=== PATIENT | female | born 1970 | race Caucasian/White ===

== ENCOUNTER 2023-11-02 13:56 | Outpatient (REF) | payer OTHER, SELFPAY | END 2023-11-02 13:57 | disposition home or self-care (01) | LOC: HO.HOSX 13:56 | PROVIDERS: Visit Provider Orthopaedic Surgery | DX: Z13.89 Encounter for screening for other disorder (principal) ==

== ENCOUNTER → 2024-01-11 13:07 | Outpatient (BNVA) | payer OTHER, SELFPAY | PROVIDERS: PCP Internal Medicine; Visit Provider Surgery ==

== ENCOUNTER → 2024-03-23 08:07 | Outpatient (BNVA) | payer OTHER, SELFPAY | PROVIDERS: PCP Internal Medicine; Visit Provider Surgery ==

== ENCOUNTER → 2024-04-20 08:05 | Outpatient (BNVA) | payer OTHER, SELFPAY | PROVIDERS: PCP Internal Medicine; Visit Provider Surgery ==

== ENCOUNTER 2024-11-27 07:31 | Inpatient (IN) | payer OTHER, SELFPAY ==
--- NOTE | ~2024-11-27 | CT_ITS ---
EXAMINATION: CT ABDOMEN AND PELVIS WITH CONTRAST CLINICAL INFORMATION: Epigastric and left-sided abdominal pain. COMPARISON: None available. TECHNIQUE: Multidetector volumetric images were obtained from the superior aspect of the liver through the pubic symphysis following administration 85 mL of Omnipaque 350 intravenous contrast. Sagittal and coronal reformatted images were obtained on the technologist's workstation. Oral contrast: No This CT examination was performed using dose optimization techniques as appropriate, variously including the following: *Automated exposure control *Adjustment of mA and/or kV according to patient size (this includes techniques or standardized protocols for targeted exams where dose is matched to indication/reason for exam; i.e. extremities or head) *Use of iterative reconstruction technique FINDINGS: LUNG BASES: Lung bases are clear. Top normal cardiac size. Small type I hiatus hernia. No effusions. LIVER, GALLBLADDER, AND BILIARY TREE: The liver is normal in size and shape with mild diffuse fatty infiltration. No focal hepatic lesion or biliary ductal dilatation is present. The gallbladder is unremarkable with no evidence of radiopaque gallstones, gallbladder wall thickening, or obvious pericholecystic inflammatory changes. PANCREAS: There is diffuse mild swelling of the entire pancreas, most notable involving the body and tail, with peripancreatic stranding and inflammation. There is a small amount of fluid abutting the tail and extending into the left anterior pararenal space. There is no discrete pancreatic lesion or evidence of necrosis. SPLEEN: Unremarkable. ADRENAL GLANDS: Unremarkable. KIDNEYS AND URETERS: The kidneys are normal in size, shape, and attenuation. No hydronephrosis, hydroureter, or calculi seen. No perinephric stranding. 11 mm left interpolar cyst. BLADDER: Unremarkable. GASTROINTESTINAL TRACT: The small bowel is normal in caliber and course. The stomach is decompressed. Small type I hiatus hernia. The duodenal sweep is normal. Colon is unremarkable. Redundant sigmoid. Mobile cecum. Normal appendix. ABDOMINAL WALL: There is a tiny periumbilical hernia. LYMPH NODES: Normal. VASCULAR: Normal. Circumaortic left renal vein. PELVIC VISCERA: No adnexal abnormalities. The uterus demonstrates a 4.2 cm peripherally calcified fibroid in the left fundus. OSSEOUS STRUCTURES: No suspicious lytic or blastic bone lesions. Mild to moderate degenerative spondylosis of the spine. There is a bone island in the left acetabulum. CT/CT abdomen pelvis w IV con IMPRESSION: 1. Moderate acute edematous pancreatitis without evidence of pancreatic necrosis. There is a small volume of fluid abutting the pancreatic tail and extending into the left anterior pararenal space. 2. Mild diffuse fatty infiltration of the liver. No focal lesion. 3. 4.6 mm left fundal calcified fibroid. 4. Suspect small type I hiatus hernia. Electronically signed by: Jonh Krueger MD 11/27/2024 01:12 PM [facility]
--- NOTE | ~2024-11-27 | MR_ITS ---
CLINICAL HISTORY: pancreatitis MRCP without gadolinium Comparison: None Findings: Sludge and/or tiny gallstones within the gallbladder. Borderline caliber common bile duct. No evidence of ductal stone. Evaluation limited by motion artifact. There is severe pancreatic and peripancreatic edema. There is moderate free fluid within the lesser sac. There is no walled-off pseudocyst. No pancreatic mass or ductal dilatation. 9 mm cyst within the right kidney. 13 mm cyst within the left kidney. No hydronephrosis. Unremarkable pancreas and adrenal glands. Mild fatty infiltration of the liver. No liver nodule or intrahepatic ductal dilatation. IMPRESSION: 1. Severe acute pancreatitis. Moderate fluid within the lesser sac. No pseudocyst. 2. Cholelithiasis. 3. No choledocholithiasis. Borderline caliber common bile duct. 4. Mild fatty infiltration of the liver. 5. Evaluation limited by motion artifact. This document has been electronically signed by: Linda Donald MD on 11/27/2024 18:42:12
[2024-11-27 07:37] VITALS: BP 150/62; PULSE 69; RESP 20; TEMP 36.6; O2SAT 99; BMI 54.9
[2024-11-27 08:01] LABS: MANUAL DIFF FLAG NO
[2024-11-27 08:02] LABS: Appearance Urine Cloudy; Basophils Absolute Auto 0.1 X10*3/uL (0.0-0.2); Basophils Percent Auto 0.4 % (0-2); Color Urine Yellow; Eosinophils Absolute Auto 0.1 X10*3/uL (0.0-0.4); Eosinophils Percent Auto 0.5 % (0-4); Glucose Urine UA Negative (Negative); Hematocrit 43.7 % (37.0-47.0); Hemoglobin 14.5 g/dl (12.0-16.0); Imm Gran Abs Auto 0.03 X10*3/uL (0.00-0.03); Imm Gran Pct Auto 0.2 % (0.0-0.4); Leukocyte Esterase Urine Negative (Negative); Lymphocytes Absolute Auto 2.5 X10*3/uL (1.2-4.9); Lymphocytes Percent Auto 20.1 % (20-40); Mean Corpuscular HGB Conc 33.2 g/dl (31.0-35.0); Mean Corpuscular Hemoglobin 30.1 pg (27.0-33.0); Mean Corpuscular Volume 90.9 fL (80.0-98.0); Mean Platelet Volume 10.6 fL (9.4-12.3); Monocytes Absolute Auto 0.9 X10*3/uL (0.1-1.2); Neutrophils Absolute Auto 8.8 x10*3/uL (2.0-8.3); Neutrophils Percent Auto 71.8 % (45-73); Nitrite Urine Negative (Negative); PH 5.5 (5.0-9.0); Platelet Count 264 X10*3/uL (160-400); Red Blood Count 4.81 X10*6/uL (4.20-5.50); Red Cell Distribution Width 13.5 % (11.0-16.0); Specific Gravity - Urine >= 1.030 (1.005-1.025); UMIC TRIGGER UACC YES; Urine Blood Large (3+) (Negative); Urine Ketones Negative (Negative); Urine Protein 30 (1+) mg/dL (Neg-Trace); White Blood Count 12.3 X10*3/uL (4.8-10.8)
[2024-11-27 08:08] LABS: Bacteria Urine Trace (None Seen); RBC Urine >20 /HPF (0-2); UACC Culture Trigger YES
[2024-11-27 08:30] LABS: Alanine Aminotransferase 199 U/L (0-31); Albumin Level 3.9 g/dL (3.5-5.0); Anion Gap 13 (12-20); Aspartate Amino Transferase 368 U/L (5-31); Bilirubin Direct 0.5 mg/dL (0.0-0.5); Bilirubin Total 1.3 mg/dL (0.0-1.0); Blood Urea Nitrogen 22 mg/dL (9-16); Calcium 9.1 mg/dL (8.4-10.2); Carbon Dioxide 25 mmol/L (22-29); Chloride 106 mmol/L (96-108); Estimated Glomerular Filt Rate > 60; Glucose Random 194 mg/dL (60-115); Potassium 3.9 mmol/L (3.3-5.1); Sodium 140 mmol/L (135-145); Total Protein 7.6 g/dL (6.5-8.0)
[2024-11-27 08:41] LABS: Lipase > 3000 U/L (8-78)
--- NOTE | 2024-11-27 10:03 | ED.ABDPAIN ---
HPI - Abdominal Pain General Chief Complaint: Abdominal Pain Stated Complaint: L side pain Time Seen by Provider: 11/27/24 09:10 Source: patient, RN notes reviewed and old records reviewed Mode of arrival: ambulatory History of Present Illness ED Provider: Justina Jung PA-C HPI narrative: 54-year-old female with a past medical history of obesity, diabetes, currently on Zepbound presenting to the ED complaining of left-sided abdominal pain since 04:00AM. Admits has been constipated for the past few days, taking medication without relief. Admits to associated nausea and vomiting this morning w/ odorous urine. Denies fever, chills, dysuria Related Data Home Medications ?Medication ?Instructions ?Recorded ?Confirmed albuterol sulfate 90 mcg/actuation 2 puff inhalation Q4H PRN wheezing 09/06/22 aerosol inhaler (ProAir HFA) atenolol 25 mg tablet 25 mg PO DAILY 09/06/22 metformin 500 mg tablet,extended 500 mg PO DAILY 09/06/22 release 24 hr meloxicam 15 mg tablet 15 mg PO DAILY 04/16/24 Allergies Allergy/AdvReac Type Severity Reaction Status Date / Time tramadol [TRAMADOL] Allergy Unknown HEART RACES Verified 11/27/24 07:39 Review of Systems Review of Systems Yes all other systems are reviewed and are negative Constitutional: Reports as per HPI [facility] Past Medical History Attestation statement: The following information was validated with the patient. Source: old records reviewed Surgical History Hx of tubal ligation Hx of tonsillectomy Family History Family History Mother No problems noted. Father Hypertension High cholesterol Arthritis Social History Social History Alcohol intake: current Alcohol intake frequency: holidays/special occasions only Patient Tobacco Use Status: Never used Tobacco Advance Directives: No Advance Directives Information Provided: No Do you have a plan to hurt others: No Plan Physical Exam ED Vital Signs: Vital Signs - 24 hr 11/27/24 07:37 11/27/24 11:50 Temperature 97.8 F Pulse Rate 69 65 Respiratory Rate 20 16 Blood Pressure 150/62 H 118/58 L Pulse Oximetry 99 99 Oxygen Delivery Method Room Air Room Air BMI result Body Mass Index 54.9 Const General: cooperative, healthy appearing and no acute distress Orientation/consciousness: patient oriented x3 Limitations: no limitations HENMT Head: Yes normal to inspection and Yes atraumatic Ears: hearing grossly normal bilaterally General nose exam: Normal external nose present Face and sinus: Yes normal facial exam Eyes General: appearance normal, both eyes and all related structures EOM: EOMs intact bilaterally Neck Neck: Yes normal visual inspection and Yes no meningeal signs Resp Effort & Inspection: normal respiratory effort and no respiratory distress Auscultation: clear to auscultation bilaterally Cardio Rate: regular rate Heart sounds: S1 normal heart sound present and S2 normal heart sound present GI Inspection: Yes normal to inspection Palpation (GI): Soft to palpation, Tenderness to palpation present (GI) (left abdomen) in the epigastrum and in the RUQ, no guarding and not rigid General: Yes CVA tenderness on the left Back/Spine/Pelvis Back: CVA tenderness Skin Rashes: no rashes Wounds: no wounds Neuro General: patient oriented x3, tone normal and no meningeal signs Cranial nerves: Yes CN's II-XII intact bilaterally Gait exam (Neuro): Normal gait present Extrem General: Yes normal to inspection Course Course Course Narrative: -1010--leukocytosis of 12.3. BUN elevated to 22. Total bilirubin 1.3. AST/ALT elevated, and lipase significantly elevated > 3000 Concern for acute pancreatitis from Zepbound > will obtain lactic/blood cultures and obtain CT AP. -UA infected with WBCs/blood > we will give empiric Zosyn 1340--CT abdomen pelvis w IV con IMPRESSION: 1. Moderate acute edematous pancreatitis without evidence of pancreatic necrosis. There is a small volume of fluid abutting the pancreatic tail and extending into the left anterior pararenal space. 2. Mild diffuse fatty infiltration of the liver. No focal lesion. 3. 4.6 mm left fundal calcified fibroid. 4. Suspect small type I hiatus hernia. > plan to admit for further management Medical Decision Making Medical Decision Making [facility] Narrative: 10:09- 54-year-old female with a past medical history of obesity, diabetes, currently on Zepbound presenting to the ED complaining of left-sided abdominal pain since 04:00AM. On exam VSS, NAD, nontoxic appearing, abdomen soft w/epigastric/RUQ & L sided abdominal tenderness. Left CVAT appreciated. No rebound or guarding. Concern for pancreatitis vs cholecystitis/lithiasis vs colitis/diverticulitis vs UTI/pyelo. Lower suspicion for renal stone at this time or appendicitis. Unlikely ischemic bowel. Low suspicion for severe sepsis Plan: Labs, UA, CT AP, IVF, re-evaluate Please refer to course for remaining clinical decision making, interpretation of labs/imaging results, and discussions with consultants and/or family members. Differential Diagnosis Differential Diagnoses: The differential diagnosis associated with the presentation includes As above Admission/Observation Consideration of admission/observation: Escalation of care including admission/observation considered Consult Healthcare Provider Management of the patient was discussed with: Hospitalist Lab Data MDM Lab Attestation statement: I reviewed the patient's lab results. 11/27/24 07:56 11/27/24 07:56 Labs: Lab Results 11/27/24 11/27/24 Range/Units 07:56 12:47 WBC 12.3 H (4.8-10.8) X10*3/uL RBC 4.81 (4.20-5.50) X10*6/uL Hgb 14.5 (12.0-16.0) g/dl Hct 43.7 (37.0-47.0) % MCV 90.9 (80.0-98.0) fL MCH 30.1 (27.0-33.0) pg MCHC 33.2 (31.0-35.0) g/dl RDW 13.5 (11.0-16.0) % Plt Count 264 (160-400) X10*3/uL MPV 10.6 (9.4-12.3) fL Immature Gran % (Auto) 0.2 (0.0-0.4) % Neut % (Auto) 71.8 (45-73) % Lymph % (Auto) 20.1 (20-40) % [place] % (Auto) 7.0 (2-11) % Eos % (Auto) 0.5 (0-4) % Baso % (Auto) 0.4 (0-2) % Lymph # (Auto) 2.5 (1.2-4.9) X10*3/uL [place] # (Auto) 0.9 (0.1-1.2) X10*3/uL Eos # (Auto) 0.1 (0.0-0.4) X10*3/uL Baso # (Auto) 0.1 (0.0-0.2) X10*3/uL Abs Immat Gran (auto) 0.03 (0.00-0.03) X10*3/uL Absolute Neuts (auto) 8.8 H (2.0-8.3) x10*3/uL Absolute Nucleated RBC 0.000 (0.0-0.012) X10*3/uL Nucleated RBC % (auto) 0.0 (0.0-0.2) /100WBC Sodium 140 (135-145) mmol/L Potassium 3.9 (3.3-5.1) mmol/L Chloride 106 (96-108) mmol/L Carbon Dioxide 25 (22-29) mmol/L Anion Gap 13 (12-20) BUN 22 H (9-16) mg/dL Creatinine 0.77 (0.5-1.4) mg/dL Estim Creat Clear Calc 114.0 Estimated GFR > 60 Random Glucose 194 H (60-115) mg/dL Lactic Acid 1.6 (0.5-2.0) mmol/L Calcium 9.1 (8.4-10.2) mg/dL Magnesium 1.8 (1.6-2.6) mg/dL Total Bilirubin 1.3 H (0.0-1.0) mg/dL Direct Bilirubin 0.5 (0.0-0.5) mg/dL AST 368 H (5-31) U/L ALT 199 H (0-31) U/L Alkaline Phosphatase 147 H (39-117) U/L Total Protein 7.6 (6.5-8.0) g/dL Albumin 3.9 (3.5-5.0) g/dL Lipase > 3000 H (8-78) U/L Urine Color Yellow Urine Appearance Cloudy Urine pH 5.5 (5.0-9.0) Ur Specific [place] >= 1.030 H (1.005-1.025) Urine Protein 30 (1+) H (Neg-Trace) mg/dL Urine Glucose (UA) Negative (Negative) mg/dL Urine Ketones Negative (Negative) mg/dL Urine Blood Large (3+) H (Negative) Urine Nitrite Negative (Negative) Ur Leukocyte Esterase Negative (Negative) Urine RBC >20 H (0-2) /HPF Urine WBC 11-20 H (0-5) /HPF Ur Squamous Epith Cells 3-5 (0-2) /HPF Urine Bacteria Trace (None Seen) Hyaline Casts 3-5 (0-2) /LPF Independent Interpretation I performed an independent interpretation of an: CT Scan Radiology Impression Discussion of test interpretation with radiology: I have reviewed the radiologist's reading. External Record Review External record reviewed: Inpatient record, Office record, Outpatient record, Prior outpatient labs, Prior outpatient radiology, Primary care record and Outside ED record Tests considered The following testing was considered but not selected: As above Prescription Management I considered prescription management with: Pain Medication and Antibiotic Chronic Conditions Patient?s care impacted by: Diabetes and Other Social Determinants Patient?s care significantly limited by Social Determinants of Health including: Other Social Determinant of Health Medications Administered Discontinued Medications Generic Name Dose Route Start Last Admin Trade Name Freq PRN Reason Stop Dose Admin Sodium Chloride 1,000 mls @ 999 mls/hr 11/27/24 10:00 11/27/24 11:20 Ns IV 11/27/24 11:00 999 mls/hr .Q1H1M DONALD Administration Piperacillin Sod/Tazobactam 50 mls @ 100 mls/hr 11/27/24 10:12 11/27/24 11:16 Sod 3.375 gm/ Sodium Chloride IV 11/27/24 10:41 100 mls/hr ONCE ONE Administration Iohexol 100 ml 11/27/24 10:55 11/27/24 10:56 Iohexol 350 Mg/Ml 100 Ml Infus..Btl IV 11/27/24 10:56 85 ml ONCE ONE Administration Ketorolac Tromethamine 15 mg 11/27/24 10:03 11/27/24 11:15 Ketorolac Tromethamine 15 Mg/Ml Vial IVPUSH 11/27/24 10:04 15 mg ONCE ONE Administration Ondansetron HCl 4 mg 11/27/24 09:53 11/27/24 11:16 Ondansetron Hcl 4 Mg/2 Ml Vial IVPUSH 11/27/24 09:54 4 mg ONCE ONE Administration Critical Care Time Critical Care Time Critical Care Time: Yes Total Critical Care Time: 35 Attestation: I have personally provided critical care time exclusive of time spent on separately billable procedures. Time includes review of lab data, radiology results, discussion with consultants, and monitoring for potential decompensation. Intervention performed as documented. Discharge Plan Discharge Clinical Impression: Acute pancreatitis Patient Disposition: Admitted As Inpatient Print Language: Urdu
[2024-11-27 10:19] LABS: Magnesium 1.8 mg/dL (1.6-2.6)
[2024-11-27] MEDS: iohexoL 350 MG/ML 100 ML INFUS..BTL IV (10:56)
[2024-11-27] MEDS: Ketorolac Tromethamine 15 MG/ML VIAL IVPUSH (11:15)
[2024-11-27] MEDS: Piperacillin Sodium/Tazobactam 3.375 GM in 0.9 % Sodium Chloride 50 ML IV (11:16)
[2024-11-27] MEDS: ondansetron HCL 4 MG/2 ML VIAL IVPUSH (11:16)
[2024-11-27] MEDS: 0.9 % Sodium Chloride 1,000 ML 999 ML IV (11:20)
[2024-11-27 11:33] LABS: Alkaline Phosphatase 147 U/L (39-117)
[2024-11-27 11:50] VITALS: BP 118/58; PULSE 65; RESP 16; O2SAT 99
[2024-11-27 13:19] LABS: Lactic Acid 1.6 mmol/L (0.5-2.0)
--- NOTE | 2024-11-27 14:04 | P.HPHOSP_ITS ---
History of Present Illness Date of Service: 11/27/24 Chief Complaint: abd pain 54F PMH morbid obesity on GLP 1 agonist for weight loss, prediabetes, hypertension presented with abdominal pain. Patient states she has had low- grade abdominal pain for several months. Usually left lower quadrant. Being treated for constipation. On early a.m. day of presentation woke up with severe epigastric and left lower quadrant pain 10/10, nonradiating, denies any nausea vomiting or diarrhea. Denies any alcohol use. In ED found to have elevated lipase, CT scan with pancreatitis, no gallstones noted. Review of Systems 2 Review of Systems: Yes all other systems are reviewed and are negative PMFSH Family History Mother No problems noted. Father Hypertension High cholesterol Arthritis Surgical History Hx of tubal ligation Hx of tonsillectomy Social History Alcohol intake: current Alcohol intake frequency: holidays/special occasions only Patient Tobacco Use Status: Never used Tobacco Advance Directives: No Advance Directives Information Provided: No Do you have a plan to hurt others: No Plan Meds Allergies Allergy/AdvReac Type Severity Reaction Status Date / Time tramadol [TRAMADOL] Allergy Unknown HEART RACES Verified 11/27/24 07:39 Active Medications: Current Medications Enoxaparin Sodium (Enoxaparin Sodium 40 Mg/0.4 Ml Syringe) 40 mg SUBCUT Q24H DONALD Hydromorphone HCl (Hydromorphone Hcl 0.5 Mg/0.5 Ml Syringe) 0.5 mg IVPUSH Q3H PRN; Protocol PRN Reason: Pain, Severe (Pain Scale 7-10) Lactated Ringer's (Lr) 1,000 mls @ 125 mls/hr IVCONT .[facility]8H [facility] Home Medications ?Medication ?Instructions ?Recorded ?Confirmed ?Last Taken ?Type albuterol sulfate 90 mcg/actuation 2 puff inhalation Q4H PRN wheezing 09/06/22 Unknown History aerosol inhaler (ProAir HFA) atenolol 25 mg tablet 25 mg PO DAILY 09/06/22 Unknown History metformin 500 mg tablet,extended 500 mg PO DAILY 09/06/22 Unknown History release 24 hr meloxicam 15 mg tablet 15 mg PO DAILY 04/16/24 Unknown History Physical Exam 2 Vital Signs and Narrative: Vital Signs: Last Vital Signs Temp 97.8 F 11/27/24 07:37 Pulse 65 11/27/24 11:50 Resp 16 11/27/24 11:50 BP 118/58 L 11/27/24 11:50 Pulse Ox 99 11/27/24 11:50 O2 Del Method Room Air 11/27/24 11:50 BMI result Body Mass Index 54.9 Epigastric tenderness, alert oriented x3 no acute distress Results Labs 11/27/24 07:56 11/27/24 07:56 Labs: Laboratory Results - last 24 hr 11/27/24 11/27/24 07:56 12:47 MCV 90.9 MCH 30.1 MCHC 33.2 RDW 13.5 Plt Count 264 MPV 10.6 Immature Gran % (Auto) 0.2 Neut % (Auto) 71.8 Lymph % (Auto) 20.1 [place] % (Auto) 7.0 Eos % (Auto) 0.5 Baso % (Auto) 0.4 Lymph # (Auto) 2.5 [place] # (Auto) 0.9 Eos # (Auto) 0.1 Baso # (Auto) 0.1 Abs Immat Gran (auto) 0.03 Absolute Neuts (auto) 8.8 H Absolute Nucleated RBC 0.000 Nucleated RBC % (auto) 0.0 Anion Gap 13 Estim Creat Clear Calc 114.0 Estimated GFR > 60 Random Glucose 194 H Lactic Acid 1.6 Calcium 9.1 Magnesium 1.8 Total Bilirubin 1.3 H Direct Bilirubin 0.5 AST 368 H ALT 199 H Alkaline Phosphatase 147 H Total Protein 7.6 Albumin 3.9 Lipase > 3000 H Urine Color Yellow Urine Appearance Cloudy Urine pH 5.5 Ur Specific [place] >= 1.030 H Urine Protein 30 (1+) H Urine Glucose (UA) Negative Urine Ketones Negative Urine Blood Large (3+) H Urine Nitrite Negative Ur Leukocyte Esterase Negative Urine RBC >20 H Urine WBC 11-20 H Ur Squamous Epith Cells 3-5 Urine Bacteria Trace Hyaline Casts 3-5 Imaging Radiologist's Impressions: Impressions Abdomen/Pelvis CT 11/27/24 10:54 IMPRESSION: 1. Moderate acute edematous pancreatitis without evidence of pancreatic necrosis. There is a small volume of fluid abutting the pancreatic tail and extending into the left anterior pararenal space. 2. Mild diffuse fatty infiltration of the liver. No focal lesion. 3. 4.6 mm left fundal calcified fibroid. 4. Suspect small type I hiatus hernia. Electronically signed by: Jonh Krueger MD 11/27/2024 01:12 PM [facility] Assessment and Plan (1) Acute pancreatitis: Status: Acute Plan 54F PMH morbid obesity on GLP 1 agonist for weight loss, prediabetes, hypertension presented with abdominal pain Acute pancreatitis Etiology likely G LP 1 agonist, check MRCP, GI eval Clear liquids, IV fluids, pain meds Will stop zepbound Prediabetes, hypertension, morbid obesity Weight loss recommended DVT prophylaxis with Lovenox Full Code Quality Stroke Does the patient have a stroke diagnosis?: No VTE Prior VTE?: No VTE Risk Level:: Medical - moderate - high VTE Device Contraindication: Treatment Not Indicated VTE Drug Contraindication: N/A - Med Ordered
--- NOTE | 2024-11-27 15:17 | PHA.MEDREC ---
Addendum entered by Jaime Jo 11/27/24 17:10: reviewed Original Note: Pharmacy Consult ? Medication Reconciliation Pharmacy has completed the medication reconciliation. Spoke to patient to confirm med list. Patient states she no longer takes Metformin 500 mg ( hasn't taken in over 2 months), Simethicone 80 mg, and Zepbound 2.5 mg( Patient only had one dose 2 week ago, then stopped due to a reactions to the medications)
[2024-11-27] MEDS: Lactated Ringers 1,000 ML 125 ML IVCONT (16:29)
--- NOTE | 2024-11-27 16:30 | PM.GICN ---
History of Present Illness Data of Consult Service Date: 11/27/24 Primary Care Provider: Unknown Physician HPI Reason for consult: pancreatitis 54F PMH morbid obesity on GLP 1 agonist for weight loss, prediabetes, hypertension who I am seeing for pancreatitis She noted severe worsening epigastric pain going into the back assocaited with nausea. The pain was 10/10 without relieving or excerbating factors. she also noted lower levels of intensity of the same pain on and off the last several months. Seems to have started after she started weight loss medication. She denies alcohol or drug use, no herbs or supplements. She still has GB in place. he notes constipation, no rectal bleeding or melena. She takes meloxicm daily for long time for joint pains. Review of Systems Review of Systems: Constitutional : No Weight loss, No Fever, No Chills ENT/Mouth : No sore throat, No Rhinorrhea Eyes: No Swelling, No Redness Cardiovascular : No Chest Pain, No SOB, No Edema Respiratory : No Cough, No Sputum, No Wheezing Gastrointestinal : see HPI Genitourinary : NO Dysuria, No Urinary Frequency, No Hematuria, No Urgency Musculoskeletal : + joint pain, No Myalgias, No Joint Swelling Skin : No Skin Lesions, No rash Neuro : No Weakness, No Numbness, No Dizziness, No Headache Psych : No Anxiety/Panic, No Depression Heme/Lymph: No Bruising, No Lymphadenopathy Endocrine : No Polyuria, No Polydipsia All other systems reviewed and are negative. [facility] Family History Family History Mother No problems noted. Father Hypertension High cholesterol Arthritis Surgical History Surgical History Hx of tubal ligation Hx of tonsillectomy Social History Social History Alcohol intake: current Alcohol intake frequency: holidays/special occasions only Patient Tobacco Use Status: Never used Tobacco Advance Directives: No Advance Directives Information Provided: No Do you have a plan to hurt others: No Plan Meds Allergies Allergy/AdvReac Type Severity Reaction Status Date / Time tramadol [TRAMADOL] Allergy Unknown HEART RACES Verified 11/27/24 07:39 Active Medications: Current Medications Acetaminophen (Acetaminophen 325 Mg Tablet) 650 mg PO Q6H PRN PRN Reason: Pain, Mild 1-3,fever,headache Calcium Carbonate (Calcium Carbonate 750 Mg Tab.Chew) 750 mg PO Q4H PRN PRN Reason: Heartburn Enoxaparin Sodium (Enoxaparin Sodium 40 Mg/0.4 Ml Syringe) 40 mg SUBCUT Q24H DONALD Hydromorphone HCl (Hydromorphone Hcl 0.5 Mg/0.5 Ml Syringe) 0.5 mg IVPUSH Q3H PRN; Protocol PRN Reason: Pain, Severe (Pain Scale 7-10) Lactated Ringer's (Lr) 1,000 mls @ 125 mls/hr IVCONT .Q8H [facility] Last Admin: 11/27/24 16:29 Dose: 125 mls/hr Magnesium Hydroxide (Milk Of Magnesia 30 Ml Oral.Susp) 30 ml PO DAILY PRN PRN Reason: Constipation Melatonin (Melatonin 3 Mg Tablet) 6 mg PO BEDTIME PRN PRN Reason: Insomnia Sodium Chloride (0.9 % Sodium Chloride Flush 3 Ml Syringe) 3 ml IVFLUSH QSHIFT [facility] Home Medications ?Medication ?Instructions ?Recorded ?Confirmed ?Last Taken ?Type atenolol 25 mg tablet 25 mg PO BEDTIME 09/06/22 11/27/24 11/26/24 History meloxicam 15 mg tablet 15 mg PO BEDTIME 04/16/24 11/27/24 11/26/24 History hydrochlorothiazide 12.5 mg tablet 12.5 mg PO BEDTIME 11/27/24 11/27/24 11/26/24 History Physical Exam Vital Signs: Vital Signs: Last Vital Signs Temp 97.8 F 11/27/24 07:37 Pulse 65 11/27/24 11:50 Resp 16 11/27/24 11:50 BP 118/58 L 11/27/24 11:50 Pulse Ox 99 11/27/24 11:50 O2 Del Method Room Air 11/27/24 11:50 BMI result Body Mass Index 54.9 EXAM: GENERAL: The patient is well developed and nontoxic, obese VITAL SIGNS:see workflow HEENT: Nonicteric sclerae, PERRLA, EOMI. Oropharynx clear. Moist mucous membranes. Conjunctivae appear well perfused. No thyroid mass. CHEST: Chest wall is nontender. HEART: Regular rate and rhythm without murmurs. LUNGS: Clear to auscultation bilaterally. ABDOMEN: Soft, positive bowel sounds, tender epigastrium, no organomegaly.no flank tenderness SKIN: No rash, no excessive bruising, petechiae, or purpura. NEUROLOGIC: Cranial nerves II-XII intact without motor/sensory deficit. Psych: normal affect Results Labs 11/27/24 07:56 11/27/24 07:56 Labs: Short CBC 11/27/24 Range/Units 07:56 WBC 12.3 H (4.8-10.8) X10*3/uL Hgb 14.5 (12.0-16.0) g/dl Hct 43.7 (37.0-47.0) % Plt Count 264 (160-400) X10*3/uL BMP 11/27/24 07:56 Sodium 140 Potassium 3.9 Chloride 106 Carbon Dioxide 25 BUN 22 H Creatinine 0.77 Calcium 9.1 Liver Function 11/27/24 Range/Units 07:56 Total Bilirubin 1.3 H (0.0-1.0) mg/dL Direct Bilirubin 0.5 (0.0-0.5) mg/dL AST 368 H (5-31) U/L ALT 199 H (0-31) U/L Alkaline Phosphatase 147 H (39-117) U/L Albumin 3.9 (3.5-5.0) g/dL Urine 11/27/24 Range/Units 07:56 Urine Color Yellow Urine Appearance Cloudy Urine pH 5.5 (5.0-9.0) Ur Specific [place] >= 1.030 H (1.005-1.025) Urine Protein 30 (1+) H (Neg-Trace) mg/dL Urine Glucose (UA) Negative (Negative) mg/dL Imaging CT scan - abdomen: Attestation: I personally reviewed and interpreted this imaging study as follows: (nml gb, edematous pancreas) Assessment and Plan (1) Acute pancreatitis: Status: Acute Plan 1/ Uncomplicated acute interstitial pancreatitis, could be from passed sludge or gallstone given elevated LFT. also possible from GLP or meloxicam use-chronic, ddx: SOD type 2, less likely autoimmune PLAN: 1/allow PO diet as tolerated 2/ MRCP to r/o cbd stone, sludge 3/ surgical consult 4/ check igg4, ry, and trigs, celiac panel for completeness Procedures Date of Service Date of Service: 11/27/24
[2024-11-27 21:24] VITALS: BP 109/43; PULSE 78; RESP 16; TEMP 36.9; O2SAT 97
[2024-11-27 21:51] LABS: Glucose, Whole Blood 78 mg/dL (60-115)
[2024-11-27] MEDS: Acetaminophen 325 MG TABLET 650 MG PO (23:00)
[2024-11-28] VITALS (7 sets, daily range): BP systolic 117–157; BP diastolic 55–82; PULSE 72–86; RESP 16–20; TEMP 36–36.7; O2SAT 96–99
[2024-11-28] MEDS: Lactated Ringers 1,000 ML 125 ML IVCONT ×3 (01:14→18:57)
[2024-11-28] MEDS: HYDROmorphone HCl 0.5 MG/0.5 ML SYRINGE IVPUSH ×2 (05:55→09:55)
[2024-11-28 06:07] LABS: Hematocrit 39.8 % (37.0-47.0); Hemoglobin 13.1 g/dl (12.0-16.0); Mean Corpuscular HGB Conc 32.9 g/dl (31.0-35.0); Mean Corpuscular Hemoglobin 30.1 pg (27.0-33.0); Mean Corpuscular Volume 91.5 fL (80.0-98.0); Mean Platelet Volume 10.8 fL (9.4-12.3); Platelet Count 219 X10*3/uL (160-400); Red Blood Count 4.35 X10*6/uL (4.20-5.50); Red Cell Distribution Width 13.5 % (11.0-16.0); White Blood Count 7.7 X10*3/uL (4.8-10.8)
[2024-11-28 06:25] LABS: Alanine Aminotransferase 147 U/L (0-31); Albumin Level 3.5 g/dL (3.5-5.0); Anion Gap 11 (12-20); Aspartate Amino Transferase 113 U/L (5-31); Bilirubin Direct 0.4 mg/dL (0.0-0.5); Bilirubin Total 1.5 mg/dL (0.0-1.0); Blood Urea Nitrogen 13 mg/dL (9-16); Calcium 8.6 mg/dL (8.4-10.2); Carbon Dioxide 25 mmol/L (22-29); Chloride 109 mmol/L (96-108); Creatinine Clr Calc Pharmacy 125.4; Estimated Glomerular Filt Rate > 60; Glucose Random 116 mg/dL (60-115); Magnesium 1.8 mg/dL (1.6-2.6); Potassium 3.5 mmol/L (3.3-5.1); Sodium 141 mmol/L (135-145); Total Protein 6.6 g/dL (6.5-8.0)
[2024-11-28 06:35] LABS: Alkaline Phosphatase 104 U/L (39-117)
[2024-11-28 06:41] LABS: Lipase 608 U/L (8-78)
[2024-11-28] MEDS: Enoxaparin Sodium 40 MG/0.4 ML SYRINGE SUBCUT (08:47)
[2024-11-28] MEDS: Milk of Magnesia 30 ML ORAL.SUSP PO (08:53)
--- NOTE | 2024-11-28 09:01 | HO.PM.IMPN ---
Subjective Subjective Date of Service: 11/28/24 Interval History: abd pain improving but still there, wants to try solids Physical Exam Vital Signs: Vital Signs: Last Vital Signs Temp 96.8 F 11/28/24 07:45 Pulse 77 11/28/24 07:45 Resp 20 11/28/24 07:45 BP 125/61 11/28/24 07:45 Pulse Ox 97 11/28/24 07:45 O2 Del Method Room Air 11/28/24 07:45 BMI result Body Mass Index 54.9 GENERAL: The patient is well developed and nontoxic, obese VITAL SIGNS:see workflow HEENT: Nonicteric sclerae, PERRLA, EOMI. Oropharynx clear. Moist mucous membranes. Conjunctivae appear well perfused. No thyroid mass. CHEST: Chest wall is nontender. HEART: Regular rate and rhythm without murmurs. LUNGS: Clear to auscultation bilaterally. ABDOMEN: Soft, positive bowel sounds, tender epigastrium, no organomegaly.no flank tenderness SKIN: No rash, no excessive bruising, petechiae, or purpura. NEUROLOGIC: Cranial nerves II-XII intact without motor/sensory deficit. Psych: normal affect Objective Data Active Medications Acetaminophen (Acetaminophen 325 Mg Tablet) 650 mg PO Q6H PRN PRN Reason: Pain, Mild 1-3,fever,headache Last Admin: 11/27/24 23:00 Dose: 650 mg Documented By: ANDREA Calcium Carbonate (Calcium Carbonate 750 Mg Tab.Chew) 750 mg PO Q4H PRN PRN Reason: Heartburn Enoxaparin Sodium (Enoxaparin Sodium 40 Mg/0.4 Ml Syringe) 40 mg SUBCUT Q24H [facility] Last Admin: 11/28/24 08:47 Dose: 40 mg Documented By: JARON Hydromorphone HCl (Hydromorphone Hcl 0.5 Mg/0.5 Ml Syringe) 0.5 mg IVPUSH Q3H PRN; Protocol PRN Reason: Pain, Severe (Pain Scale 7-10) Last Admin: 11/28/24 05:55 Dose: 0.5 mg Documented By: KAREEM Lactated Ringer's (Lr) 1,000 mls @ 125 mls/hr IVCONT .Q8H [facility] Last Admin: 11/28/24 06:33 Dose: Not Given Documented By: KAREEM Non-Admin Reason: IV Running Magnesium Hydroxide (Milk Of Magnesia 30 Ml Oral.Susp) 30 ml PO DAILY PRN PRN Reason: Constipation Last Admin: 11/28/24 08:53 Dose: 30 ml Documented By: JARON Melatonin (Melatonin 3 Mg Tablet) 6 mg PO BEDTIME PRN PRN Reason: Insomnia Sodium Chloride (0.9 % Sodium Chloride Flush 3 Ml Syringe) 3 ml IVFLUSH QSHIFT [facility] Last Admin: 11/28/24 08:48 Dose: Not Given Documented By: JARON Non-Admin Reason: IV Running Labs 11/28/24 05:50 11/28/24 05:50 Labs: Laboratory Results - last 24 hr 11/27/24 11/27/24 11/27/24 07:56 12:47 21:47 MCV MCH MCHC RDW Plt Count MPV Absolute Nucleated RBC Nucleated RBC % (auto) Anion Gap Estim Creat Clear Calc Estimated GFR POC Glucose 78 Random Glucose Lactic Acid 1.6 Calcium Magnesium 1.8 Total Bilirubin Direct Bilirubin AST ALT Alkaline Phosphatase 147 H Total Protein Albumin Lipase Urine Color Yellow Urine Appearance Cloudy Urine pH 5.5 Ur Specific [place] >= 1.030 H Urine Protein 30 (1+) H Urine Glucose (UA) Negative Urine Ketones Negative Urine Blood Large (3+) H Urine Nitrite Negative Ur Leukocyte Esterase Negative Urine RBC >20 H Urine WBC 11-20 H Ur Squamous Epith Cells 3-5 Urine Bacteria Trace Hyaline Casts 3-5 11/28/24 05:50 MCV 91.5 MCH 30.1 MCHC 32.9 RDW 13.5 Plt Count 219 MPV 10.8 Absolute Nucleated RBC 0.000 Nucleated RBC % (auto) 0.0 Anion Gap 11 L Estim Creat Clear Calc 125.4 Estimated GFR > 60 POC Glucose Random Glucose 116 H Lactic Acid Calcium 8.6 Magnesium 1.8 Total Bilirubin 1.5 H Direct Bilirubin 0.4 AST 113 H ALT 147 H Alkaline Phosphatase 104 Total Protein 6.6 Albumin 3.5 Lipase 608 H Urine Color Urine Appearance Urine pH Ur Specific [place] Urine Protein Urine Glucose (UA) Urine Ketones Urine Blood Urine Nitrite Ur Leukocyte Esterase Urine RBC Urine WBC Ur Squamous Epith Cells Urine Bacteria Hyaline Casts Assessment and Plan (1) Acute pancreatitis: Status: Acute Plan 54F PMH morbid obesity on GLP 1 agonist for weight loss, prediabetes, hypertension presented with abdominal pain Acute pancreatitis differential includes GLP 1 agonist, MRCP with cholithiasis no cbd stone - possible gallstone pancreatitis - surgery eval follow up igG4, lipidsl advance to solids, continue pain meds as needed Prediabetes, hypertension, morbid obesity Weight loss recommended DVT prophylaxis with Lovenox Full Code reason for continued hospitalization:awaiting tolerance of po Quality Stroke Does the patient have a stroke diagnosis?: No VTE Prior VTE?: No VTE Risk Level:: Medical - moderate - high VTE Device Contraindication: Treatment Not Indicated VTE Drug Contraindication: N/A - Med Ordered
[2024-11-28 09:36] LABS: Cholesterol 157 mg/dL (<200); HDL Cholesterol 45 mg/dL (>40); LDL Cholesterol Calculated 94 mg/dL (<100); Triglycerides 93 mg/dL (<150)
--- NOTE | 2024-11-28 10:24 | PM.CNGS ---
History of Present Illness Consult details Consult date: 11/28/24 Requesting physician: Blake Munoz Narrative: 54 year old female with PMH of morbid obesity on GLP 1 agonist for weight loss, prediabetes, hypertension who presented with acute worsening of upper abdominal pain. Patient states she has had mild left sided abdominal pain for a few months. She saw her PCP and was treated for constipation without improvement. She reports on the day of presentation, she was awoken out of sleep with severe LUQ/epigastric abd pain. Nonradiating, denies any nausea vomiting or diarrhea. Denies any alcohol use. In ED found to have elevated lipase/LFTs, CT scan with pancreatitis and she was therefore admitted to the medical service for further treatment of the acute pancreatitis. MRCP was obtained which showed significant severe pancreatic inflammatory changes and peripancreatic edema, small gallstones, no intraor extrahepatic ductal dilatation or filling defect. She reports improvement in her abd pain since admission. Prior to the onset of the pain a few months ago, she denies similar episodes of pain or any RUQ pain, fatty food intolerance. Review of Systems Review of Systems: Yes all other systems are reviewed and are negative [facility] Family History Family History Mother No problems noted. Father Hypertension High cholesterol Arthritis Surgical History Surgical History Hx of tubal ligation Hx of tonsillectomy Social History Social History Alcohol intake: current Alcohol intake frequency: holidays/special occasions only Patient Tobacco Use Status: Never used Tobacco Meds Allergies Allergy/AdvReac Type Severity Reaction Status Date / Time tramadol [TRAMADOL] Allergy Unknown HEART RACES Verified 11/27/24 07:39 Active Medications: Current Medications Acetaminophen (Acetaminophen 325 Mg Tablet) 650 mg PO Q6H PRN PRN Reason: Pain, Mild 1-3,fever,headache Last Admin: 11/27/24 23:00 Dose: 650 mg Calcium Carbonate (Calcium Carbonate 750 Mg Tab.Chew) 750 mg PO Q4H PRN PRN Reason: Heartburn Enoxaparin Sodium (Enoxaparin Sodium 40 Mg/0.4 Ml Syringe) 40 mg SUBCUT Q24H [facility] Last Admin: 11/28/24 08:47 Dose: 40 mg Hydromorphone HCl (Hydromorphone Hcl 0.5 Mg/0.5 Ml Syringe) 0.5 mg IVPUSH Q3H PRN; Protocol PRN Reason: Pain, Severe (Pain Scale 7-10) Last Admin: 11/28/24 09:55 Dose: 0.5 mg Lactated Ringer's (Lr) 1,000 mls @ 125 mls/hr IVCONT .Q8H [facility] Last Admin: 11/28/24 09:56 Dose: 125 mls/hr Magnesium Hydroxide (Milk Of Magnesia 30 Ml Oral.Susp) 30 ml PO DAILY PRN PRN Reason: Constipation Last Admin: 11/28/24 08:53 Dose: 30 ml Melatonin (Melatonin 3 Mg Tablet) 6 mg PO BEDTIME PRN PRN Reason: Insomnia Sodium Chloride (0.9 % Sodium Chloride Flush 3 Ml Syringe) 3 ml IVFLUSH QSHIFT [facility] Last Admin: 11/28/24 08:48 Dose: Not Given Home Medications ?Medication ?Instructions ?Recorded ?Confirmed ?Last Taken ?Type atenolol 25 mg tablet 25 mg PO BEDTIME 09/06/22 11/27/24 11/26/24 History meloxicam 15 mg tablet 15 mg PO BEDTIME 04/16/24 11/27/24 11/26/24 History hydrochlorothiazide 12.5 mg tablet 12.5 mg PO BEDTIME 11/27/24 11/27/24 11/26/24 History Physical Exam Vital Signs: Vital Signs: Last Vital Signs Temp 96.8 F 11/28/24 07:45 Pulse 77 11/28/24 07:45 Resp 20 11/28/24 07:45 BP 125/61 11/28/24 07:45 Pulse Ox 97 11/28/24 07:45 O2 Del Method Room Air 11/28/24 07:45 BMI result Body Mass Index 54.9 Const: General: comfortable, no acute distress and alert Orientation/consciousness: patient oriented x3 GI: Other: corpulent abdomen Palpation (GI): Soft to palpation, Tenderness to palpation present (GI) (LUQ/epigastric, mild ) Patel's sign negative and with no rebound tenderness and no guarding Percussion: Yes normal to percussion Skin: General skin exam: no rashes or lesions noted and no jaundice Neuro: General: patient oriented x3 Results Labs 11/28/24 05:50 11/28/24 05:50 Labs: Abnormal lab results 11/27/24 11/28/24 Range/Units 07:56 05:50 Chloride 109 H (96-108) mmol/L Anion Gap 11 L (12-20) Random Glucose 116 H (60-115) mg/dL Total Bilirubin 1.5 H (0.0-1.0) mg/dL AST 113 H (5-31) U/L ALT 147 H (0-31) U/L Alkaline Phosphatase 147 H (39-117) U/L Lipase 608 H (8-78) U/L Short CBC 11/28/24 Range/Units 05:50 WBC 7.7 (4.8-10.8) X10*3/uL Hgb 13.1 (12.0-16.0) g/dl Hct 39.8 (37.0-47.0) % Plt Count 219 (160-400) X10*3/uL BMP 11/28/24 05:50 Sodium 141 Potassium 3.5 Chloride 109 H Carbon Dioxide 25 BUN 13 Creatinine 0.70 Calcium 8.6 Liver Function 11/27/24 11/28/24 Range/Units 07:56 05:50 Total Bilirubin 1.5 H (0.0-1.0) mg/dL Direct Bilirubin 0.4 (0.0-0.5) mg/dL AST 113 H (5-31) U/L ALT 147 H (0-31) U/L Alkaline Phosphatase 147 H 104 (39-117) U/L Albumin 3.5 (3.5-5.0) g/dL Urine 11/27/24 Range/Units 07:56 Urine Color Yellow Urine Appearance Cloudy Urine pH 5.5 (5.0-9.0) Ur Specific [place] >= 1.030 H (1.005-1.025) Urine Protein 30 (1+) H (Neg-Trace) mg/dL Urine Glucose (UA) Negative (Negative) mg/dL All other labs normal. Imaging Abdomen CT scan report/results: report reviewed and image reviewed Assessment and Plan (1) Acute pancreatitis: Status: Acute Plan 54 year old female with PMH of morbid obesity on GLP 1 agonist for weight loss, prediabetes, hypertension admitted with acute pancreatitis. MRCP shows gallstones without intra or extrahepatic ductal dilatation, severe peripancreatitic changes. Unclear etiology of pancreatitis, may be secondary to GLP 1 agonist as she endorses months of LUQ pain. Would hold off on any surgical intervention currently. Continue supportive measures, advance diet as tolerated. Can follow up in the office. Discussed this with the patient who is in agreement. Procedures Date of Service Date of Service: 11/28/24
--- NOTE | 2024-11-28 11:16 | MHC.CM.PN ---
[facility] DELIVERED PT LIVES WITH DAUGHTERS AND FUNCTIONALLY INDEPENDENT. NO SERVICES OR DME. PT EMPLOYED P/T. +HCP PCP AT [facility] IN [facility]. DP: HOME, NO SERVICES IS ANTICIPATED. PT HAS OWN RIDE HOME. CM WILL CONTINUE TO FOLLOW FOR ANY CHANGE TO DC PLAN/NEEDS.
[2024-11-28] MEDS: Acetaminophen 325 MG TABLET 650 MG PO ×2 (14:11→20:16)
--- NOTE | 2024-11-28 16:20 | P.PNGI_ITS ---
Subjective Subjective Date of Service: 11/28/24 Interval History: mild improvement in abdominal pain still unable to eat as worsens pain not passing stool mild nausea no fever MRI with gallstones, LFT coming down Critical Care Time (minutes): 0 Physical Exam 2 Vital Signs: Vital Signs: Last Vital Signs Temp 97.3 F 11/28/24 15:42 Pulse 86 11/28/24 15:42 Resp 18 11/28/24 15:42 BP 128/59 L 11/28/24 15:42 Pulse Ox 96 11/28/24 15:42 O2 Del Method Room Air 11/28/24 15:42 BMI result Body Mass Index 54.9 EXAM: GENERAL: The patient is well developed and nontoxic. VITAL SIGNS:see workflow HEENT: Nonicteric sclerae, PERRLA, EOMI. Oropharynx clear. Moist mucous membranes. Conjunctivae appear well perfused. No thyroid mass. CHEST: Chest wall is nontender. HEART: Regular rate and rhythm without murmurs. LUNGS: Clear to auscultation bilaterally. ABDOMEN: Soft, positive bowel sounds, tender epigastrium, no organomegaly.no flank tenderness SKIN: No rash, no excessive bruising, petechiae, or purpura. NEUROLOGIC: Cranial nerves II-XII intact without motor/sensory deficit. Psych: normal affect Objective Data Labs 11/28/24 05:50 11/28/24 05:50 Labs: Laboratory Results - last 24 hr 11/27/24 11/28/24 21:47 05:50 WBC 7.7 RBC 4.35 Hgb 13.1 Hct 39.8 MCV 91.5 MCH 30.1 MCHC 32.9 RDW 13.5 Plt Count 219 MPV 10.8 Absolute Nucleated RBC 0.000 Nucleated RBC % (auto) 0.0 Sodium 141 Potassium 3.5 Chloride 109 H Carbon Dioxide 25 Anion Gap 11 L BUN 13 Creatinine 0.70 Estim Creat Clear Calc 125.4 Estimated GFR > 60 POC Glucose 78 Random Glucose 116 H Calcium 8.6 Magnesium 1.8 Total Bilirubin 1.5 H Direct Bilirubin 0.4 AST 113 H ALT 147 H Alkaline Phosphatase 104 Total Protein 6.6 Albumin 3.5 Triglycerides 93 Cholesterol 157 LDL Cholesterol, Calc 94 HDL Cholesterol 45 Lipase 608 H Microbiology Microbiology Results: Microbiology 11/27/24 10:42 Blood - Venous Blood Culture - Preliminary No growth after 24 hours. 11/27/24 10:42 Blood - Venous Blood Culture - Preliminary No growth after 24 hours. 11/27/24 10:45 Urine clean catch - Clean Catch Midstream Urine Culture - Final Procedures Date of Service Date of Service: 11/28/24 Progress Note: A&P Assessment and plan (1) Acute pancreatitis: Status: Acute Plan 1/ Suspect gallstone pancreatitis given the LFT elevation which is now coming down, I dont think this was due to GLP meds PLAN: /1 - f/u with surgery 2/ allow PO diet when able 3/ cont with LR for the moment Time Spent With Patient Time: Total time managing care of this patient today ____ minutes. Quality Stroke Does the patient have a stroke diagnosis?: No VTE Prior VTE?: No VTE Risk Level:: Medical - moderate - high VTE Device Contraindication: Treatment Not Indicated VTE Drug Contraindication: N/A - Med Ordered
[2024-11-28] MEDS: atenoloL 25 MG TABLET PO (22:02)
[2024-11-29] MEDS: Lactated Ringers 1,000 ML 125 ML IVCONT ×2 (02:28→10:26)
[2024-11-29] MEDS: Acetaminophen 325 MG TABLET 650 MG PO ×4 (02:30→20:54)
[2024-11-29 03:16] VITALS: BP 134/63; PULSE 82; RESP 17; TEMP 36.7; O2SAT 96
[2024-11-29 06:54] VITALS: BP 118/58; PULSE 80; RESP 16; TEMP 36.6; O2SAT 97
[2024-11-29 07:11] LABS: Hematocrit 36.9 % (37.0-47.0); Hemoglobin 12.2 g/dl (12.0-16.0); Mean Corpuscular HGB Conc 33.1 g/dl (31.0-35.0); Mean Corpuscular Hemoglobin 30.3 pg (27.0-33.0); Mean Corpuscular Volume 91.8 fL (80.0-98.0); Mean Platelet Volume 10.8 fL (9.4-12.3); Platelet Count 188 X10*3/uL (160-400); Red Blood Count 4.02 X10*6/uL (4.20-5.50); Red Cell Distribution Width 13.6 % (11.0-16.0); White Blood Count 8.3 X10*3/uL (4.8-10.8)
[2024-11-29 07:12] LABS: Alanine Aminotransferase 82 U/L (0-31); Albumin Level 3.1 g/dL (3.5-5.0); Alkaline Phosphatase 86 U/L (39-117); Anion Gap 11 (12-20); Aspartate Amino Transferase 38 U/L (5-31); Bilirubin Direct 0.5 mg/dL (0.0-0.5); Bilirubin Total 1.6 mg/dL (0.0-1.0); Blood Urea Nitrogen 7 mg/dL (9-16); Calcium 8.3 mg/dL (8.4-10.2); Carbon Dioxide 25 mmol/L (22-29); Chloride 110 mmol/L (96-108); Creatinine Clr Calc Pharmacy 143.8; Estimated Glomerular Filt Rate > 60; Glucose Random 109 mg/dL (60-115); Potassium 3.8 mmol/L (3.3-5.1); Sodium 142 mmol/L (135-145); Total Protein 6.1 g/dL (6.5-8.0)
[2024-11-29] MEDS: Enoxaparin Sodium 40 MG/0.4 ML SYRINGE SUBCUT (08:40)
--- NOTE | 2024-11-29 09:27 | P.PNIM_ITS ---
Subjective Subjective Date of Service: 11/29/24 Interval History: not doing well with solids, still with abd pain Physical Exam 2 Vital Signs: Vital Signs: Last Vital Signs Temp 97.9 F 11/29/24 06:54 Pulse 80 11/29/24 06:54 Resp 16 11/29/24 06:54 BP 118/58 L 11/29/24 06:54 Pulse Ox 97 11/29/24 06:54 O2 Del Method Room Air 11/29/24 06:54 BMI result Body Mass Index 54.9 GENERAL: The patient is well developed and nontoxic, obese VITAL SIGNS:see workflow HEENT: Nonicteric sclerae, PERRLA, EOMI. Oropharynx clear. Moist mucous membranes. Conjunctivae appear well perfused. No thyroid mass. CHEST: Chest wall is nontender. HEART: Regular rate and rhythm without murmurs. LUNGS: Clear to auscultation bilaterally. ABDOMEN: Soft, positive bowel sounds, tender epigastrium, no organomegaly.no flank tenderness SKIN: No rash, no excessive bruising, petechiae, or purpura. NEUROLOGIC: Cranial nerves II-XII intact without motor/sensory deficit. Psych: normal affect Objective Data Active Medications Acetaminophen (Acetaminophen 325 Mg Tablet) 650 mg PO Q6H PRN PRN Reason: Pain, Mild 1-3,fever,headache Last Admin: 11/29/24 08:45 Dose: 650 mg Documented By: JARON Calcium Carbonate (Calcium Carbonate 750 Mg Tab.Chew) 750 mg PO Q4H PRN PRN Reason: Heartburn Enoxaparin Sodium (Enoxaparin Sodium 40 Mg/0.4 Ml Syringe) 40 mg SUBCUT Q24H [facility] Last Admin: 11/29/24 08:40 Dose: 40 mg Documented By: JARON Hydromorphone HCl (Hydromorphone Hcl 0.5 Mg/0.5 Ml Syringe) 0.5 mg IVPUSH Q3H PRN; Protocol PRN Reason: Pain, Severe (Pain Scale 7-10) Last Admin: 11/28/24 09:55 Dose: 0.5 mg Documented By: JARON Lactated Ringer's (Lr) 1,000 mls @ 125 mls/hr IVCONT .Q8H [facility] Last Admin: 11/29/24 02:28 Dose: 125 mls/hr Documented By: KAREEM Magnesium Hydroxide (Milk Of Magnesia 30 Ml Oral.Susp) 30 ml PO DAILY PRN PRN Reason: Constipation Last Admin: 11/28/24 08:53 Dose: 30 ml Documented By: JARON Melatonin (Melatonin 3 Mg Tablet) 6 mg PO BEDTIME PRN PRN Reason: Insomnia Sodium Chloride (0.9 % Sodium Chloride Flush 3 Ml Syringe) 3 ml IVFLUSH QSHIFT [facility] Last Admin: 11/29/24 06:59 Dose: Not Given Documented By: JARON Non-Admin Reason: IV Running Labs 11/29/24 06:44 11/29/24 06:44 Labs: Laboratory Results - last 24 hr 11/28/24 11/29/24 05:50 06:44 MCV 91.8 MCH 30.3 MCHC 33.1 RDW 13.6 Plt Count 188 MPV 10.8 Absolute Nucleated RBC 0.000 Nucleated RBC % (auto) 0.0 Anion Gap 11 L Estim Creat Clear Calc 143.8 Estimated GFR > 60 Random Glucose 109 Calcium 8.3 L Total Bilirubin 1.6 H Direct Bilirubin 0.5 AST 38 H ALT 82 H Alkaline Phosphatase 86 Total Protein 6.1 L Albumin 3.1 L Triglycerides 93 Cholesterol 157 LDL Cholesterol, Calc 94 HDL Cholesterol 45 Microbiology Microbiology Results: Microbiology 11/27/24 10:42 Blood Culture - Preliminary Blood - Venous No growth after 24 hours. 11/27/24 10:42 Blood Culture - Preliminary Blood - Venous No growth after 24 hours. 11/27/24 10:45 Urine Culture - Final Urine clean catch - Clean Catch Midstream Assessment and Plan (1) Acute pancreatitis: Status: Acute Plan 54F PMH morbid obesity on GLP 1 agonist for weight loss, prediabetes, hypertension presented with abdominal pain Acute pancreatitis differential includes passed gallstone vs less likely GLP 1 agonist advance to solids but did not tolerate, continue pain meds as needed, ivf surgery appreciated would hold of on cholecystectomy for now Prediabetes, hypertension, morbid obesity Weight loss recommended DVT prophylaxis with Lovenox Full Code reason for continued hospitalization:awaiting tolerance of po Quality Stroke Does the patient have a stroke diagnosis?: No VTE Prior VTE?: No VTE Risk Level:: Medical - moderate - high VTE Device Contraindication: Treatment Not Indicated VTE Drug Contraindication: N/A - Med Ordered
[2024-11-29 15:40] VITALS: BP 128/63; PULSE 79; RESP 18; TEMP 36.5; O2SAT 99
[2024-11-29 19:44] VITALS: BP 155/77; PULSE 87; RESP 18; TEMP 37; O2SAT 99
[2024-11-29] MEDS: 0.9 % Sodium Chloride Flush 3 ML SYRINGE IVFLUSH (20:56)
[2024-11-29] MEDS: atenoloL 25 MG TABLET PO (22:20)
[2024-11-30 02:49] VITALS: BP 169/95; PULSE 83; RESP 18; TEMP 36.8; O2SAT 98
[2024-11-30] MEDS: Acetaminophen 325 MG TABLET 650 MG PO ×4 (02:53→22:25)
[2024-11-30] MEDS: Milk of Magnesia 30 ML ORAL.SUSP PO (02:55)
[2024-11-30 06:51] VITALS: BP 130/60; PULSE 79; RESP 17; TEMP 36.6; O2SAT 98
[2024-11-30 08:47] LABS: Hematocrit 39.8 % (37.0-47.0); Hemoglobin 13.2 g/dl (12.0-16.0); Mean Corpuscular HGB Conc 33.2 g/dl (31.0-35.0); Mean Corpuscular Hemoglobin 30.5 pg (27.0-33.0); Mean Corpuscular Volume 91.9 fL (80.0-98.0); Mean Platelet Volume 10.9 fL (9.4-12.3); Platelet Count 219 X10*3/uL (160-400); Red Blood Count 4.33 X10*6/uL (4.20-5.50); Red Cell Distribution Width 13.5 % (11.0-16.0); White Blood Count 10.2 X10*3/uL (4.8-10.8)
[2024-11-30] MEDS: Enoxaparin Sodium 40 MG/0.4 ML SYRINGE SUBCUT (09:11)
[2024-11-30] MEDS: 0.9 % Sodium Chloride Flush 3 ML SYRINGE IVFLUSH (09:12)
[2024-11-30 09:14] LABS: Alanine Aminotransferase 66 U/L (0-31); Albumin Level 3.5 g/dL (3.5-5.0); Alkaline Phosphatase 91 U/L (39-117); Anion Gap 10 (12-20); Aspartate Amino Transferase 26 U/L (5-31); Bilirubin Direct 0.5 mg/dL (0.0-0.5); Bilirubin Total 1.4 mg/dL (0.0-1.0); Blood Urea Nitrogen 8 mg/dL (9-16); Calcium 9.1 mg/dL (8.4-10.2); Carbon Dioxide 28 mmol/L (22-29); Chloride 107 mmol/L (96-108); Creatinine Clr Calc Pharmacy 151.3; Estimated Glomerular Filt Rate > 60; Glucose Random 97 mg/dL (60-115); Lipase 59 U/L (8-78); Magnesium 2.2 mg/dL (1.6-2.6); Potassium 3.9 mmol/L (3.3-5.1); Sodium 141 mmol/L (135-145); Total Protein 7.1 g/dL (6.5-8.0)
--- NOTE | 2024-11-30 11:51 | MHC.CM.PN ---
Per MD rounds patient not medically cleared for dc, not tolerating diet. CM will continue to follow.
--- NOTE | 2024-11-30 12:42 | P.PNIM_ITS ---
Subjective Subjective Date of Service: 11/30/24 Interval History: seen and examined Reports worsening pain with solids wants to go back to full liquids Physical Exam 2 Vital Signs: Vital Signs: Last Vital Signs Temp 98 F 11/30/24 06:51 Pulse 79 11/30/24 06:51 Resp 17 11/30/24 06:51 BP 130/60 11/30/24 06:51 Pulse Ox 98 11/30/24 06:51 O2 Del Method Room Air 11/30/24 06:51 BMI result Body Mass Index 54.9 Const: Other: Awake and alert Diffuse abd tenderness without rebound S1-S2 Lungs clear Neuro nonfocal Objective Data Active Medications Acetaminophen (Acetaminophen 325 Mg Tablet) 650 mg PO Q6H PRN PRN Reason: Pain, Mild 1-3,fever,headache Last Admin: 11/30/24 09:12 Dose: 650 mg Documented By: JARON Atenolol (Atenolol 25 Mg Tablet) 25 mg PO BEDTIME [facility]; Protocol Last Admin: 11/29/24 22:20 Dose: 25 mg Documented By: GABRIELLE Calcium Carbonate (Calcium Carbonate 750 Mg Tab.Chew) 750 mg PO Q4H PRN PRN Reason: Heartburn Enoxaparin Sodium (Enoxaparin Sodium 40 Mg/0.4 Ml Syringe) 40 mg SUBCUT Q24H [facility] Last Admin: 11/30/24 09:11 Dose: 40 mg Documented By: JARON Hydromorphone HCl (Hydromorphone Hcl 0.5 Mg/0.5 Ml Syringe) 0.5 mg IVPUSH Q3H PRN; Protocol PRN Reason: Pain, Severe (Pain Scale 7-10) Last Admin: 11/28/24 09:55 Dose: 0.5 mg Documented By: JARON Magnesium Hydroxide (Milk Of Magnesia 30 Ml Oral.Susp) 30 ml PO DAILY PRN PRN Reason: Constipation Last Admin: 11/30/24 02:55 Dose: 30 ml Documented By: GABRIELLE Melatonin (Melatonin 3 Mg Tablet) 6 mg PO BEDTIME PRN PRN Reason: Insomnia Sodium Chloride (0.9 % Sodium Chloride Flush 3 Ml Syringe) 3 ml IVFLUSH QSHIFT [facility] Last Admin: 11/30/24 09:12 Dose: 3 ml Documented By: HO.LAPOINM Labs 11/30/24 07:54 11/30/24 07:54 Labs: Laboratory Results - last 24 hr 11/30/24 07:54 MCV 91.9 MCH 30.5 MCHC 33.2 RDW 13.5 Plt Count 219 MPV 10.9 Absolute Nucleated RBC 0.000 Nucleated RBC % (auto) 0.0 Anion Gap 10 L Estim Creat Clear Calc 151.3 Estimated GFR > 60 Random Glucose 97 Calcium 9.1 D Magnesium 2.2 Total Bilirubin 1.4 H Direct Bilirubin 0.5 AST 26 ALT 66 H Alkaline Phosphatase 91 Total Protein 7.1 Albumin 3.5 Lipase 59 Microbiology Microbiology Results: Microbiology 11/27/24 10:42 Blood Culture - Preliminary Blood - Venous No growth after 48 hours. 11/27/24 10:42 Blood Culture - Preliminary Blood - Venous No growth after 48 hours. Assessment and Plan (1) Acute pancreatitis: Status: Acute Plan 54F PMH morbid obesity on GLP 1 agonist for weight loss, prediabetes, hypertension presented with abdominal pain Acute pancreatitis differential includes passed gallstone vs less likely GLP 1 agonist Not tolerating solids, we will deescalate to full liquids for another 24 hours Continue with IV analgesics and IV fluids surgery appreciated would hold of on cholecystectomy for now Prediabetes, hypertension, morbid obesity Weight loss recommended DVT prophylaxis with Lovenox Full Code reason for continued hospitalization:awaiting tolerance of po Quality Stroke Does the patient have a stroke diagnosis?: No VTE Prior VTE?: No VTE Risk Level:: Medical - moderate - high VTE Device Contraindication: Treatment Not Indicated VTE Drug Contraindication: N/A - Med Ordered
[2024-11-30] MEDS: Lactated Ringers 1,000 ML 100 ML IVCONT (14:18)
[2024-11-30 16:45] VITALS: BP 132/64; PULSE 76; RESP 16; TEMP 36.6; O2SAT 99
[2024-11-30 20:00] VITALS: BP 132/65; PULSE 82; RESP 16; TEMP 36.3; O2SAT 98
[2024-11-30] MEDS: atenoloL 25 MG TABLET PO (21:02)
[2024-12-01] MEDS: Lactated Ringers 1,000 ML 100 ML IVCONT ×2 (01:57→17:04)
[2024-12-01 03:34] VITALS: BP 131/60; PULSE 80; RESP 16; TEMP 36.6; O2SAT 97
[2024-12-01] MEDS: Acetaminophen 325 MG TABLET 650 MG PO (04:26)
[2024-12-01 07:11] VITALS: BP 125/59; PULSE 79; RESP 18; TEMP 36; O2SAT 96
[2024-12-01] MEDS: Acetaminophen 325 MG TABLET 975 MG PO ×3 (10:12→21:04)
[2024-12-01] MEDS: Enoxaparin Sodium 40 MG/0.4 ML SYRINGE SUBCUT (10:13)
[2024-12-01 14:52] LABS: Glucose, Whole Blood 76 mg/dL (60-115)
[2024-12-01 15:17] VITALS: BP 151/83; PULSE 76; RESP 18; TEMP 36.8; O2SAT 100
[2024-12-01] MEDS: 0.9 % Sodium Chloride Flush 3 ML SYRINGE IVFLUSH (15:24)
[2024-12-01] MEDS: Milk of Magnesia 30 ML ORAL.SUSP PO (15:24)
--- NOTE | 2024-12-01 16:18 | HO.PM.IMPN ---
Subjective Subjective Date of Service: 12/01/24 Interval History: abd pain Review of Systems abd pain seems similar has some nausea Physical Exam Vital Signs: Vital Signs: Last Vital Signs Temp 98.2 F 12/01/24 15:17 Pulse 76 12/01/24 15:17 Resp 18 12/01/24 15:17 BP 151/83 H 12/01/24 15:17 Pulse Ox 100 12/01/24 15:17 O2 Del Method Room Air 12/01/24 15:17 BMI result Body Mass Index 54.9 Awake and alert abd :Diffuse abd tenderness without rebound cvs:S1-S2 ,rrr. Lungs clear Neuro nonfocal Objective Data Active Medications Acetaminophen (Acetaminophen 325 Mg Tablet) 975 mg PO Q6H DONALD Last Admin: 12/01/24 15:23 Dose: 975 mg Documented By: SEJAL Atenolol (Atenolol 25 Mg Tablet) 25 mg PO BEDTIME DONALD; Protocol Last Admin: 11/30/24 21:02 Dose: 25 mg Documented By: NICHOLAS Calcium Carbonate (Calcium Carbonate 750 Mg Tab.Chew) 750 mg PO Q4H PRN PRN Reason: Heartburn Enoxaparin Sodium (Enoxaparin Sodium 40 Mg/0.4 Ml Syringe) 40 mg SUBCUT Q24H DONALD Last Admin: 12/01/24 10:13 Dose: 40 mg Documented By: SEJAL Hydromorphone HCl (Hydromorphone Hcl 0.5 Mg/0.5 Ml Syringe) 0.5 mg IVPUSH Q3H PRN; Protocol PRN Reason: Pain, Severe (Pain Scale 7-10) Last Admin: 11/28/24 09:55 Dose: 0.5 mg Documented By: JARNO Hydromorphone HCl (Hydromorphone Hcl 2 Mg Tablet) 1 mg PO Q4H PRN PRN Reason: Pain, Severe (Pain Scale 7-10) Magnesium Hydroxide (Milk Of Magnesia 30 Ml Oral.Susp) 30 ml PO DAILY PRN PRN Reason: Constipation Last Admin: 12/01/24 15:24 Dose: 30 ml Documented By: SEJAL Melatonin (Melatonin 3 Mg Tablet) 6 mg PO BEDTIME PRN PRN Reason: Insomnia Sodium Chloride (0.9 % Sodium Chloride Flush 3 Ml Syringe) 3 ml IVFLUSH QSHIFT [facility] Last Admin: 12/01/24 15:24 Dose: 3 ml Documented By: SEJAL Labs 11/30/24 07:54 11/30/24 07:54 Labs: Laboratory Results - last 24 hr 12/01/24 14:48 POC Glucose 76 Assessment and Plan (1) Acute pancreatitis: Status: Acute Plan 54F PMH morbid obesity on GLP 1 agonist for weight loss, prediabetes, hypertension presented with abdominal pain Acute pancreatitis differential includes passed gallstone vs less likely GLP 1 agonist Not tolerating solids Continue with full liquids, IV analgesics and IV fluids surgery appreciated would hold of on cholecystectomy for now Prediabetes, hypertension, morbid obesity Weight loss recommended. DVT prophylaxis with Lovenox Full Code reason for continued hospitalization:awaiting tolerance of po Quality Stroke Does the patient have a stroke diagnosis?: No VTE Prior VTE?: No VTE Risk Level:: Medical - moderate - high VTE Device Contraindication: Treatment Not Indicated VTE Drug Contraindication: N/A - Med Ordered
[2024-12-01 19:14] VITALS: BP 138/78; PULSE 76; RESP 18; TEMP 36.2; O2SAT 99
[2024-12-01] MEDS: atenoloL 25 MG TABLET PO (21:04)
[2024-12-02] MEDS: Lactated Ringers 1,000 ML 100 ML IVCONT ×3 (02:48→21:27)
[2024-12-02 02:59] VITALS: BP 149/85; PULSE 72; RESP 16; TEMP 36; O2SAT 98
[2024-12-02] MEDS: Acetaminophen 325 MG TABLET 975 MG PO ×3 (03:05→17:04)
--- NOTE | 2024-12-02 07:55 | HO.PM.IMPN ---
Subjective Subjective Date of Service: 12/02/24 Interval History: pancreatitis Review of Systems has abd pain with fullliquid even feels some nausea Physical Exam Vital Signs: Vital Signs: Last Vital Signs Temp 96.8 F 12/02/24 02:59 Pulse 72 12/02/24 02:59 Resp 16 12/02/24 02:59 BP 149/85 H 12/02/24 02:59 Pulse Ox 98 12/02/24 02:59 O2 Del Method Room Air 12/02/24 02:59 BMI result Body Mass Index 54.9 Awake and alert abd :Diffuse abd tenderness without rebound cvs:S1-S2 ,rrr. Lungs clear Neuro nonfocal Objective Data Active Medications Acetaminophen (Acetaminophen 325 Mg Tablet) 975 mg PO Q6H DONALD Last Admin: 12/02/24 03:05 Dose: 975 mg Documented By: NICHOLAS Atenolol (Atenolol 25 Mg Tablet) 25 mg PO BEDTIME DONALD; Protocol Last Admin: 12/01/24 21:04 Dose: 25 mg Documented By: NICHOLAS Calcium Carbonate (Calcium Carbonate 750 Mg Tab.Chew) 750 mg PO Q4H PRN PRN Reason: Heartburn Enoxaparin Sodium (Enoxaparin Sodium 40 Mg/0.4 Ml Syringe) 40 mg SUBCUT Q24H DONALD Last Admin: 12/01/24 10:13 Dose: 40 mg Documented By: SEJAL Hydromorphone HCl (Hydromorphone Hcl 0.5 Mg/0.5 Ml Syringe) 0.5 mg IVPUSH Q3H PRN; Protocol PRN Reason: Pain, Severe (Pain Scale 7-10) Last Admin: 11/28/24 09:55 Dose: 0.5 mg Documented By: JARON Hydromorphone HCl (Hydromorphone Hcl 2 Mg Tablet) 1 mg PO Q4H PRN PRN Reason: Pain, Severe (Pain Scale 7-10) Lactated Ringer's (Lr) 1,000 mls @ 100 mls/hr IVCONT .Q10H DONALD Last Admin: 12/02/24 02:48 Dose: 100 mls/hr Documented By: NICHOLAS Magnesium Hydroxide (Milk Of Magnesia 30 Ml Oral.Susp) 30 ml PO DAILY PRN PRN Reason: Constipation Last Admin: 12/01/24 15:24 Dose: 30 ml Documented By: SEJAL Melatonin (Melatonin 3 Mg Tablet) 6 mg PO BEDTIME PRN PRN Reason: Insomnia Ondansetron HCl (Ondansetron Hcl 4 Mg/2 Ml Vial) 4 mg IVPUSH Q6H PRN PRN Reason: Nausea and Vomiting Sodium Chloride (0.9 % Sodium Chloride Flush 3 Ml Syringe) 3 ml IVFLUSH QSHIFT [facility] Last Admin: 12/01/24 23:26 Dose: Not Given Documented By: NICHOLAS Non-Admin Reason: IV Running Labs 11/30/24 07:54 11/30/24 07:54 Labs: Laboratory Results - last 24 hr 12/01/24 14:48 POC Glucose 76 Assessment and Plan (1) Acute pancreatitis: Status: Acute Plan 54F PMH morbid obesity on GLP 1 agonist for weight loss, prediabetes, hypertension presented with abdominal pain Acute pancreatitis differential includes passed gallstone vs less likely GLP 1 agonist Not tolerating solids Continue with full liquids, IV analgesics and IV fluids surgery appreciated would hold of on cholecystectomy for now Prediabetes, hypertension, morbid obesity Weight loss recommended. DVT prophylaxis with Lovenox Full Code reason for continued hospitalization:awaiting tolerance of po Quality Stroke Does the patient have a stroke diagnosis?: No VTE Prior VTE?: No VTE Risk Level:: Medical - moderate - high VTE Device Contraindication: Treatment Not Indicated VTE Drug Contraindication: N/A - Med Ordered
[2024-12-02 07:58] VITALS: BP 153/72; PULSE 80; RESP 18; TEMP 36.7; O2SAT 97
[2024-12-02] MEDS: Enoxaparin Sodium 40 MG/0.4 ML SYRINGE SUBCUT (09:55)
[2024-12-02 13:54] LABS: Glucose, Whole Blood 134 mg/dL (60-115)
[2024-12-02 15:55] VITALS: BP 162/69; PULSE 71; RESP 18; TEMP 36.6; O2SAT 98
--- NOTE | 2024-12-02 19:25 | PC.NURSE ---
BP 162/69. Provider notified. On atenelol at HS. No new orders.
[2024-12-02 19:38] VITALS: BP 129/60; PULSE 82; RESP 20; TEMP 36.7; O2SAT 99
[2024-12-02] MEDS: atenoloL 25 MG TABLET PO (21:25)
[2024-12-02] MEDS: Milk of Magnesia 30 ML ORAL.SUSP PO (21:27)
[2024-12-02 23:00] LABS: Glucose, Whole Blood 95 mg/dL (60-115)
[2024-12-03] MEDS: Acetaminophen 325 MG TABLET 975 MG PO ×2 (00:07→06:03)
[2024-12-03 03:42] VITALS: BP 131/63; PULSE 77; RESP 18; TEMP 36.4; O2SAT 96
[2024-12-03] MEDS: Lactated Ringers 1,000 ML 100 ML IVCONT (06:05)
[2024-12-03 07:57] VITALS: BP 121/72; PULSE 70; RESP 16; TEMP 36.3; O2SAT 98
[2024-12-03] MEDS: Enoxaparin Sodium 40 MG/0.4 ML SYRINGE SUBCUT (09:13)
--- NOTE | 2024-12-03 11:08 | MHC.CM.PN ---
Patient medically cleared for home self care via private transport.
--- NOTE | 2024-12-03 11:09 | P.DS_ITS ---
DS: Providers Provider Date of Service: 12/03/24 Date of admission: 11/29/24 07:59 Date of discharge: 12/03/24 Primary care physician: Gustavo Asher MD Consults: 11/27/24 14:02 Consult to Gastroenterology Routine Consulting Provider: Blake Munoz Reason for consultation: pancreatitis Has provider been notified: Yes 11/27/24 19:25 Consult to General Surgery [place]ine [place]ing [place] [facility] [place] Reason for consultation: ?gallstone pancreatitis Attending physician on discharge: Denzel Carmona Discharging clinician: Denzel Carmona DS: Diagnosis Discharge Diagnosis (1) Acute pancreatitis: Status: Acute DS: Summary Hospital Course Hospital Course: HPI:54F PMH morbid obesity on GLP 1 agonist for weight loss, prediabetes, hypertension presented with abdominal pain. Patient states she has had low- grade abdominal pain for several months. Usually left lower quadrant. Being treated for constipation. On early a.m. day of presentation woke up with severe epigastric and left lower quadrant pain 10/10, nonradiating, denies any nausea vomiting or diarrhea. Denies any alcohol use. In ED found to have elevated lipase, CT scan with pancreatitis, no gallstones noted. Hospital course: 54F PMH morbid obesity on GLP 1 agonist for weight loss, prediabetes, hypertension presented with abdominal pain-patient was admitted for abdominal pain, CT abdomen showed possible pancreatitis: Possibly related to biliary sludge or stone vs GLP-1 agonist(less likely) for weight loss: Patient was started on bowel rest, IV fluid and pain medication-GI and surgery was consulted: Patient's LFTs and pain is improving, tolerating diet. Patient was advised to discuss with her primary provider before using GLP ago nist, in addition patient is to follow-up with surgery outpatient for MRCP shows gallstones without intra or extrahepatic ductal dilatation. plan: Monitor LFT discuss with her primary doctor before using GLP agonist. follow up with surgery outpatient. Above management discussed with the patient detail length she understand and in agreement above, time spent 40 minute. Time Attestation Total time managing care of this patient today: 40 mintues. Discharge Coordination Time (in mins): 40 min Quality: Safe Use of Opioids Does Pt have an Active Cancer Diagnosis on the Problem List?: No Quality: Stroke Does the patient have a stroke diagnosis?: No Physical Exam Vital Signs: Vital Signs: Last Vital Signs Temp 97.4 F 12/03/24 07:57 Pulse 70 12/03/24 07:57 Resp 16 12/03/24 07:57 BP 121/72 12/03/24 07:57 Pulse Ox 98 12/03/24 07:57 O2 Del Method Room Air 12/03/24 07:57 BMI result Body Mass Index 54.9 Awake and alert abd :soft ,nd,nt ,bs present. cvs:S1-S2 ,rrr. Lungs clear Neuro nonfocal DS: Data Data Completed and Pending Labs on day of discharge: Laboratory Results - last 24 hr 12/02/24 12/02/24 13:50 22:57 POC Glucose 134 H 95 Imaging Chest x-ray: Radiologist's impression: ITS Impressions Abdomen/Pelvis CT 11/27/24 10:54 IMPRESSION: 1. Moderate acute edematous pancreatitis without evidence of pancreatic necrosis. There is a small volume of fluid abutting the pancreatic tail and extending into the left anterior pararenal space. 2. Mild diffuse fatty infiltration of the liver. No focal lesion. 3. 4.6 mm left fundal calcified fibroid. 4. Suspect small type I hiatus hernia. Electronically signed by: Jonh Krueger MD 11/27/2024 01:12 PM [facility] Discharge Plan Discharge Anticipated Discharge Date/Time: 12/03/24 10:52 Patient Disposition: Home, Self-Care Discharge Diagnosis: acute pancreatitis -could be related from passed sludge or gallstone. Referrals: Gustavo Asher MD [Primary Care Provider] - 1 Week Aura Muhammad PA-C [Physician [employer]] - 2 Weeks Discharge Medications: New acetaminophen 325 mg Tablet 975 mg PO Q6H PRN (Reason: Pain, Severe (Pain Scale 7-10)) Qty: 10 0RF Continued atenolol 25 mg tablet 25 mg PO BEDTIME Held hydrochlorothiazide 12.5 mg tablet 12.5 mg PO BEDTIME Hold Instructions: Resume on 12/10/24. Discontinued meloxicam 15 mg tablet 15 mg PO BEDTIME Discharge Orders: Discharge Order (Routine); Ordered 12/03/24 Ordered By: Denzel Carmona Diet: Advance to usual diet Activity on Discharge: As tolerated Stand Alone Forms: Patient Portal Discharge page Print Language: Stateless Care Plan Goals: 54F PMH morbid obesity on GLP 1 agonist for weight loss, prediabetes, hypertension presented with abdominal pain-patient was admitted for abdominal pain, CT abdomen showed possible pancreatitis: Possibly related to biliary sludge or stone vs GLP-1 agonist(less likely) for weight loss: Patient was started on bowel rest, IV fluid and pain medication-GI and surgery was consulted: Patient's LFTs and pain is improving, tolerating diet. Patient was advised to discuss with her primary provider before using GLP agonist, in addition patient is to follow-up with surgery outpatient for MRCP shows gallstones without intra or extrahepatic ductal dilatation. Above management discussed with the patient detail length she understand and in agreement above, time spent 40 minute. Health Concerns: As above. Plan of Treatment: Monitor LFT discuss with her primary doctor before using GLP agonist. follow up with surgery outpatient. Assessment: as above.
--- NOTE | 2024-12-03 11:12 | P.DS_ITS ---
DS: Providers Provider Date of Service: 12/03/24 Date of admission: 11/29/24 07:59 Date of discharge: 12/03/24 Primary care physician: Gustavo Asher MD Consults: 11/27/24 14:02 Consult to Gastroenterology Routine Consulting Provider: Blake Munoz Reason for consultation: pancreatitis Has provider been notified: Yes 11/27/24 19:25 Consult to General Surgery Routine Consulting Provider: [facility] [place] [facility] Reason for consultation: ?gallstone pancreatitis Attending physician on discharge: Denzel Carmona Discharging clinician: Denzel Carmona DS: Diagnosis Discharge Diagnosis (1) Acute pancreatitis: Status: Acute DS: Summary Hospital Course Hospital Course: HPI:54F PMH morbid obesity on GLP 1 agonist for weight loss, prediabetes, hypertension presented with abdominal pain. Patient states she has had low- grade abdominal pain for several months. Usually left lower quadrant. Being treated for constipation. On early a.m. day of presentation woke up with severe epigastric and left lower quadrant pain 10/10, nonradiating, denies any nausea vomiting or diarrhea. Denies any alcohol use. In ED found to have elevated lipase, CT scan with pancreatitis, no gallstones noted. Hospital course: 54F PMH morbid obesity on GLP 1 agonist for weight loss, prediabetes, hypertension presented with abdominal pain-patient was admitted for abdominal pain, CT abdomen showed possible pancreatitis: Possibly related to biliary sludge or stone vs GLP-1 agonist(less likely) for weight loss: Patient was started on bowel rest, IV fluid and pain medication-GI and surgery was consulted: Patient's LFTs and pain is improving, tolerating diet. Patient was advised to discuss with her primary provider before using GLP ago nist, in addition patient is to follow-up with surgery outpatient for MRCP shows gallstones without intra or extrahepatic ductal dilatation. plan: Monitor LFT discuss with her primary doctor before using GLP agonist. follow up with surgery outpatient. Above management discussed with the patient detail length she understand and in agreement above, time spent 40 minute. Time Attestation Discharge Coordination Time (in mins): 40 min Quality: Safe Use of Opioids Does Pt have an Active Cancer Diagnosis on the Problem List?: No Quality: Stroke Does the patient have a stroke diagnosis?: No Physical Exam Vital Signs: Vital Signs: Last Vital Signs Temp 97.4 F 12/03/24 07:57 Pulse 70 12/03/24 07:57 Resp 16 12/03/24 07:57 BP 121/72 12/03/24 07:57 Pulse Ox 98 12/03/24 07:57 O2 Del Method Room Air 12/03/24 07:57 BMI result Body Mass Index 54.9 Awake and alert abd :soft ,nd,nt ,bs present cvs:S1-S2 ,rrr. Lungs clear Neuro nonfocal DS: Data Data Completed and Pending Labs on day of discharge: Laboratory Results - last 24 hr 12/02/24 12/02/24 13:50 22:57 POC Glucose 134 H 95 Imaging Chest x-ray: Radiologist's impression: ITS Impressions Abdomen/Pelvis CT 11/27/24 10:54 IMPRESSION: 1. Moderate acute edematous pancreatitis without evidence of pancreatic necrosis. There is a small volume of fluid abutting the pancreatic tail and extending into the left anterior pararenal space. 2. Mild diffuse fatty infiltration of the liver. No focal lesion. 3. 4.6 mm left fundal calcified fibroid. 4. Suspect small type I hiatus hernia. Electronically signed by: Jonh Krueger MD 11/27/2024 01:12 PM [facility] Discharge Plan Discharge Anticipated Discharge Date/Time: 12/03/24 10:52 Patient Disposition: Home, Self-Care Discharge Diagnosis: acute pancreatitis -could be related from passed sludge or gallstone. Referrals: Gustavo Asher MD [Primary Care Provider] - 1 Week Aura Muhammad PA-C [Physician [employer]] - 2 Weeks Discharge Medications: New acetaminophen 325 mg Tablet 975 mg PO Q6H PRN (Reason: Pain, Severe (Pain Scale 7-10)) Qty: 10 0RF Continued atenolol 25 mg tablet 25 mg PO BEDTIME Held hydrochlorothiazide 12.5 mg tablet 12.5 mg PO BEDTIME Hold Instructions: Resume on 12/10/24. Discontinued meloxicam 15 mg tablet 15 mg PO BEDTIME Discharge Orders: Discharge Order (Routine); Ordered 12/03/24 Ordered By: Denzel Carmona Diet: Advance to usual diet Activity on Discharge: As tolerated Stand Alone Forms: Patient Portal Discharge page Print Language: Armenian Care Plan Goals: 54F PMH morbid obesity on GLP 1 agonist for weight loss, prediabetes, hypertension presented with abdominal pain-patient was admitted for abdominal pain, CT abdomen showed possible pancreatitis: Possibly related to biliary sludge or stone vs GLP-1 agonist(less likely) for weight loss: Patient was started on bowel rest, IV fluid and pain medication-GI and surgery was consulted: Patient's LFTs and pain is improving, tolerating diet. Patient was advised to discuss with her primary provider before using GLP agonist, in addition patient is to follow-up with surgery outpatient for MRCP shows gallstones without intra or extrahepatic ductal dilatation. Above management discussed with the patient detail length she understand and in agreement above, time spent 40 minute. Health Concerns: As above. Plan of Treatment: Monitor LFT discuss with her primary doctor before using GLP agonist. follow up with surgery outpatient. Assessment: as above.
== END 2024-12-03 15:00 | disposition home or self-care (01) | DRG 282 ==
LOC: HO.ED 13:44 → HO.EDOVER 14:07 → HO.S3 11-28 00:50
PROVIDERS: Physician Assistant; Admitting Provider Internal Medicine; Emergency Provider Emergency Medicine Emergency Medical Services; PCP Internal Medicine; Visit Provider Internal Medicine
DX: K85.10 Biliary acute pancreatitis without necrosis or infection (principal); Z68.43 Body mass index [BMI] 50.0-59.9, adult; K85.30 Drug induced acute pancreatitis without necrosis or infection; I10 Essential (primary) hypertension; T38.3X5A Adverse effect of insulin and oral hypoglycemic [antidiabetic] drugs, initial encounter; R73.03 Prediabetes; E66.01 Morbid (severe) obesity due to excess calories; K59.00 Constipation, unspecified; Z71.3 Dietary counseling and surveillance; Z79.899 Other long term (current) drug therapy
CPT/HCPCS: 36415; 74177; 74181; 80048; 80061; 80076; 81001; 81003; 82947; 83605; 83690; 83735; 85025; 85027; 87040; 87086; 99221; 99285; J1171; J1650; J1885; J2405; J2543; J7120; Q9967

== ENCOUNTER → 2024-11-27 09:53 | Outpatient (BNV) | payer OTHER, SELFPAY | PROVIDERS: Emergency Provider Emergency Medicine Emergency Medical Services; Visit Provider Radiology Diagnostic Radiology | DX: R10.13 Epigastric pain (principal); K85.90 Acute pancreatitis without necrosis or infection, unspecified; K80.20 Calculus of gallbladder without cholecystitis without obstruction | CPT/HCPCS: 74177; 74181 ==

== ENCOUNTER → 2024-11-27 14:03 | Outpatient (BNV) | payer OTHER, SELFPAY | PROVIDERS: Admitting Provider Internal Medicine; Emergency Provider Emergency Medicine Emergency Medical Services; Visit Provider Internal Medicine | DX: K85.90 Acute pancreatitis without necrosis or infection, unspecified (principal) | CPT/HCPCS: 99223; 99231; 99232; 99233; 99239 ==

== ENCOUNTER → 2024-11-27 14:03 | Outpatient (BNV) | payer OTHER, SELFPAY | PROVIDERS: Admitting Provider Internal Medicine; Emergency Provider Emergency Medicine Emergency Medical Services; Visit Provider Physician Assistant Surgical | DX: K85.90 Acute pancreatitis without necrosis or infection, unspecified (principal) | CPT/HCPCS: 99222 ==

== ENCOUNTER → 2024-11-27 14:03 | Outpatient (BNV) | payer OTHER, SELFPAY | PROVIDERS: Admitting Provider Internal Medicine; Emergency Provider Emergency Medicine Emergency Medical Services; Visit Provider Internal Medicine Gastroenterology | DX: K85.90 Acute pancreatitis without necrosis or infection, unspecified (principal) | CPT/HCPCS: 99223; 99232 ==

== ENCOUNTER 2024-12-05 08:11 | Outpatient (AMB) | payer OTHER, SELFPAY ==
--- NOTE | 2024-12-05 08:12 | A.OFFVIS_ITS ---
Vital Signs 12/05/24 08:18 Height 5 ft 2 in Weight 291 lb BMI 53.2 BP 140/77 H Blood Pressure Location Rt brachial Position Sitting Pulse 79 Intake Visit Reasons: acute pancreatitis Intake Note: Pateint referred after ED visit for pancreatis. Patient c/o: on and off pain on LUQ. Ozempic stopped 3wks. MRCP & Abd/ pelvis CT: 11-27-2024 [employer] Required: No Accompanied by: Self / Same As Patient Allergies tramadol [TRAMADOL] Allergy (Unknown, Verified 12/05/24 08:17) HEART RACES Medication List - Last Reconciled 12/05/24 by Raymon Alexis MD acetaminophen 975 mg (3 x 325 mg) PO Q6H PRN atenolol 25 mg PO BEDTIME hydrochlorothiazide 12.5 mg PO BEDTIME HPI Comments Details: Patient is here for follow-up status post recent hospitalization for gallstone pancreatitis. All things considered, she feels better, although she still has occasional epigastric discomfort. She is tolerating a diet. He is having regular bowel habits. She occasionally takes Motrin, Tylenol, or Vicodin for pain. She denies any jaundice. Chart was reviewed and patient evaluated [facility] Medical History (Updated 12/05/24 @ 08:27 by DANNI Mallory) Asthma HTN (hypertension) Surgical History (Updated 12/05/24 @ 08:31 by Raymon Alexis MD) Hx of tubal ligation Hx of tonsillectomy Family History Mother No problems noted. Father Hypertension High cholesterol Arthritis Social History Alcohol intake: current Alcohol intake frequency: holidays/special occasions only Patient Tobacco Use Status: Never used Tobacco service: No Physical Exam Vital Signs: Last Vital Signs Pulse 79 12/05/24 08:18 BP 140/77 H 12/05/24 08:18 BMI result Body Mass Index 53.2 Eyes Other: Anicteric Chest Other: Chest sounds bilaterally, HS 1 in 2 GI Other: Abdomen very corpulent, soft, benign Assessment & Plan Assessment & Plan (1) Gallstone pancreatitis: Code(s): K85.10 - Biliary acute pancreatitis without necrosis or infection Category: Surgical (2) Cholelithiasis: Code(s): K80.20 - Calculus of gallbladder without cholecystitis without obstruction Category: Surgical Plan Risks, benefits, and alternatives laparoscopic possible open cholecystectomy were reviewed with the patient and included but not limited to bleeding, infection, recurrence of symptoms, numbness, pain, scarring, possible cholangiogram and the patient wishes to proceed. All questions answered. Arrangements were made for this on a day which is convenient for her. Patient was on Ozempic and has not been on this for over 3 weeks time. She does not plan on taken the med anymore. Medications: New hydrocodone-acetaminophen 5-325 mg Partial Fill upon patient request. 1 tab PO Q4-6H PRN 30 tabs 0RF pain Coding Level of Care Code New Pt Level 5 (72873) Diagnoses Gallstone pancreatitis K85.10 Cholelithiasis K80.20
[2024-12-05 08:18] VITALS: BP 140/77; PULSE 79; BMI 53.2
== END 2024-12-05 08:30 | disposition home or self-care (01) ==
PROVIDERS: PCP Internal Medicine; Visit Provider Surgery
DX: K85.10 Biliary acute pancreatitis without necrosis or infection (principal); K80.20 Calculus of gallbladder without cholecystitis without obstruction
CPT/HCPCS: 99214

== ENCOUNTER → 2024-12-05 08:11 | Outpatient (BNVA) | payer OTHER, SELFPAY | PROVIDERS: PCP Internal Medicine; Visit Provider Surgery | DX: K85.10 Biliary acute pancreatitis without necrosis or infection (principal); K80.20 Calculus of gallbladder without cholecystitis without obstruction | CPT/HCPCS: 99212 ==

== ENCOUNTER 2025-01-17 07:08 | Day surgery (SDC) | payer OTHER, SELFPAY ==
[2025-01-15 10:15] VITALS: BMI 53.2
--- NOTE | 2025-01-16 09:19 | MHC.SHP ---
Pre-Procedural Eval Section A - 24 Hr Update-Section A only Date of Service: 01/17/25 The patient is an INPATIENT: No Changes since office visit: No Cold of Flu in the past 2 weeks, No New Medical Problems, No Changes in Medication and No Patient answered all questions Section B - Complete if H&P > 30 days Chief Complaint: Biliary acute pancreatitis without necrosis or inf Allergies: Allergies Allergy/AdvReac Type Severity Reaction Status Date / Time tramadol [TRAMADOL] Allergy Unknown HEART RACES Verified 12/05/24 08:17 Review of Systems Sugical H&P ROS: Negative: Constitution, Cardiovascular, Respiratory, Neurological, Psychiatric, Hem-Onc, Allergic/Immunologic, Gastrointestinal, Genitourinary, Musculoskeletal, Integumentary, Endocrine and Eyes/Ears/Nose/Throat Exam Surgical H&P Exam: Normal: HEENT, Normal: Heart, Normal: Lungs, Normal: Extremities, Normal: Abdomen, Normal: Skin and Normal: Neurological Plan I have reviewed the history and physical and performed a pertinent physical examination on my patient. No changes have occurred unless specified. Time Spent With Patient Time: Total time managing care of this patient today ____ minutes.
[2025-01-17] VITALS (10 sets, daily range): BP systolic 112–160; BP diastolic 70–98; PULSE 57–80; RESP 13–20; TEMP 36.1–36.6; O2SAT 93–99; BMI 50.4
--- NOTE | ~2025-01-17 | FL_ITS ---
EXAMINATION: FL GUIDANCE ONLY HISTORY: LAP EVELYN POSSIBLE CHOL COMPARISON: Correlation is made with an MRCP dated 11/27/2024. TECHNIQUE: Fluoroscopy time: 0.4 minutes. Cumulative Dose: 13.7 mGy. DAP: 3.74 mGym2 Images: 3. FINDINGS: Images demonstrate opacification of a normal caliber common bile duct and intrahepatic biliary radicles. No filling defects are identified to suggest choledocholithiasis. FL/FL guidance in OR IMPRESSION: Fluoroscopy during procedure. Please see procedure report for additional information. Electronically signed by: Sanjeev Lundebrg MD 01/17/2025 10:26 AM EDT
[2025-01-17] MEDS: Lactated Ringers 1,000 ML 100 ML IVCONT (07:44)
--- NOTE | 2025-01-17 08:55 | P.CONAN_ITS ---
Documented by User: Jennifer Rosa NP 01/15/25 12:46 HPI - Anesthesia Eval Consult details Narrative: 54yo F for Cholecystectomy Laparoscopic, possible open, pissible cholangiogram BMI [address] [facility] admit 11/2024 Hospital course: 54F PMH morbid obesity on GLP 1 agonist for weight loss, prediabetes, hypertension presented with abdominal pain-patient was admitted for abdominal pain, CT abdomen showed possible pancreatitis: Possibly related to biliary sludge or stone vs GLP-1 agonist(less likely) for weight loss: Patient was started on bowel rest, IV fluid and pain medication-GI and surgery was consulted: Patient's LFTs and pain is improving, tolerating diet. Patient was advised to discuss with her primary provider before using GLP agonist, in addition patient is to follow-up with surgery outpatient for MRCP shows gallstones without intra or extrahepatic ductal dilatation. PMFSH Active Problems Active Problems: All Active Problems Cholelithiasis (Acute) Gallstone pancreatitis (Acute) Acute pancreatitis (Acute) Right knee pain (Acute) Left knee pain (Acute) Past Medical History Medical History (Updated 01/15/25 @ 10:14 by Bridget Rodríguez RN) Constipation Knee pain, bilateral Back pain Asthma HTN (hypertension) Family History Family History Mother No problems noted. Father Hypertension High cholesterol Arthritis Surgical History Surgical History (Updated 01/17/25 @ 07:29 by Nelia Mann RN) Previous section History of nasal surgery Hx of tubal ligation Hx of tonsillectomy Social History Social History (Updated 01/15/25 @ 10:18 by Bridget Rodríguez RN) Household Members: Other Household Members Other:: daughter Housing: House Are you a primary dog day care attendant to a significant other at home: No Do you presently have visiting nurse or other home services: No Alcohol intake: current Alcohol intake frequency: holidays/special occasions only Patient Tobacco Use Status: Never used Tobacco e-Cigarette/Vaping Use: Never Used Use of substances other than those prescribed or required for medical reasons: No Have you been hit, kicked, punched, or otherwise hurt by someone within the past year? If so, by whom?: No Are you DNR?: No Advance Directives: No Advance Directives Information Provided: Yes Advance Directives on File: No service: No Meds Allergies Allergy/AdvReac Type Severity Reaction Status Date / Time tramadol [TRAMADOL] Allergy Unknown HEART RACES Verified 01/17/25 07:29 Home Medications ?Medication ?Instructions ?Recorded ?Confirmed ?Last Taken ?Type atenolol 25 mg tablet 25 mg PO BEDTIME 09/06/22 01/17/25 01/16/25 History hydrochlorothiazide 12.5 mg tablet 12.5 mg PO BEDTIME 11/27/24 01/17/25 01/15/25 History meloxicam 15 mg tablet 15 mg PO DAILY 01/15/25 01/17/25 01/15/25 History Exam Height,Weight and Vital Signs: Height 5 ft 2 in Weight 131.995 kg Pertinent Lab Results Pertinent Lab Results: Laboratory Tests 11/30/24 07:54 WBC 10.2 Hgb 13.2 Hct 39.8 Plt Count 219 Sodium 141 Potassium 3.9 Chloride 107 Carbon Dioxide 28 BUN 8 L Creatinine 0.58 Assessment and Plan Assessment Anesthesia Assessment: Chart Reviewed Documented by User: Niki Zhao DO 01/17/25 09:29 [facility] Past Medical History Medical History (Updated 01/15/25 @ 10:14 by Bridget Rodríguez RN) Constipation Knee pain, bilateral Back pain Asthma HTN (hypertension) Family History Family History Mother No problems noted. Father Hypertension High cholesterol Arthritis Family history of problems with anesthesia: No Surgical History Surgical History (Updated 01/17/25 @ 07:29 by Nelia Mann RN) Previous section History of nasal surgery Hx of tubal ligation Hx of tonsillectomy History of Problems with Anesthesia: No Social History Social History (Updated 01/15/25 @ 10:18 by Bridget Rodríguez RN) Household Members: Other Household Members Other:: daughter Housing: House Are you a primary dog day care attendant to a significant other at home: No Do you presently have visiting nurse or other home services: No Alcohol intake: current Alcohol intake frequency: holidays/special occasions only Patient Tobacco Use Status: Never used Tobacco e-Cigarette/Vaping Use: Never Used Use of substances other than those prescribed or required for medical reasons: No Have you been hit, kicked, punched, or otherwise hurt by someone within the past year? If so, by whom?: No Are you DNR?: No Advance Directives: No Advance Directives Information Provided: Yes Advance Directives on File: No service: No Meds Allergies Allergy/AdvReac Type Severity Reaction Status Date / Time tramadol [TRAMADOL] Allergy Unknown HEART RACES Verified 01/17/25 07:29 Home Medications ?Medication ?Instructions ?Recorded ?Confirmed ?Last Taken ?Type atenolol 25 mg tablet 25 mg PO BEDTIME 09/06/22 01/17/25 01/16/25 History hydrochlorothiazide 12.5 mg tablet 12.5 mg PO BEDTIME 11/27/24 01/17/25 01/15/25 History meloxicam 15 mg tablet 15 mg PO DAILY 01/15/25 01/17/25 01/15/25 History Exam Exam Date and Time: 01/17/25 0850 Height,Weight and Vital Signs: Height 5 ft 2 in Weight 131.995 kg Vital Signs Temperature 97.8 F 01/17/25 07:31 Pulse Rate 70 01/17/25 07:31 Respiratory Rate 16 01/17/25 07:31 Blood Pressure 148/85 H 01/17/25 07:31 Pulse Oximetry 99 01/17/25 07:31 Oxygen Delivery Method Room Air 01/17/25 07:31 Temperature 97.8 F 01/17/25 07:31 Pulse Rate 70 01/17/25 07:31 Respiratory Rate 16 01/17/25 07:31 Blood Pressure 148/85 H 01/17/25 07:31 Pulse Oximetry 99 01/17/25 07:31 Oxygen Delivery Method Room Air 01/17/25 07:31 Airway Mallampati Class: II TM Dist: >3cm Neck ROM: Full Loose/Missing/Broken Teeth: Yes (broken molar right upper jaw) Heart: S1S2 Lungs: CTAB Assessment and Plan Assessment Anesthesia Assessment: Anesthesia Plan Discussed and Chart Reviewed Final Anesthetic Review Family History of Problems with Anesthesia: No History of Problems with Anesthesia: No NPO: Yes ASA Class: III Final Preanesthetic Review: No Changes in Pt Med Stat, Meds/Allgs Chart Reviewed, Consent Obtained/Reviewed and Anes Risks/Benef Reviewed Patient Risk: Intermediate Procedure Risk: Intermediate Anesthetic Plan Anesthetic Plan: GA and Agree w/ Assess. and Plan Disposition: Standard PACU
[2025-01-17] MEDS: ceFAZolin Sodium/Dextrose,Iso 2 GM/50 ML PIGGYBACK IV (09:15)
--- NOTE | 2025-01-17 10:19 | P.OP_ITS ---
Operative Note Operative Note Date of Service: 01/17/25 Narrative: Preoperative diagnosis: [] History of gallstone pancreatitis Postop diagnosis: [] The same Procedure [] laparoscopic cholecystectomy with cholangiogram Surgeon: [] Reuben Criminal Profiler: [] Jb Type of Anesthesia: [] General Indication for surgery: [] History of gallstone pancreatitis. Intraoperative cholangiogram demonstrated free flow of contrast into the extrahepatic biliary system and duodenum. No obvious filling defects demonstrated. Gallbladder with omental adhesions to it. Small gallstones in the gallbladder. Very corpulent abdomen Findings: [] Patient brought to the operating room, placed on operative table supine position, after an adequate level general anesthesia was induced, the patient's abdomen is prepped and draped in usual sterile fashion using a supraumbilical curvilinear incision, Munoz technique was used to insufflate abdominal cavity to 15 mm of CO2. Upper midline and right subcostal ports were placed under direct laparoscopic view, and the patient placed in reverse Trendelenburg position, and tilted to the left. Findings were as noted above. Gallbladder was grasped using laparoscopic graspers and retracted superiorly and laterally. Omental adhesions swept off the gallbladder. Common bile duct was identified and preserved throughout the procedure. Cystic artery and cystic duct were each identified, circumferentially skeletonized, and each traced directly into the gallbladder and critical view obtained. A clip was placed on the cystic duct/Malgorzata's pouch junction and a small cholecyctodochotomy was made and cholangiocatheter advanced into the cystic duct. Cholangiogram was performed with findings as noted above. Cystic duct was then clipped proximally x2 and transected. Similarly 62 artery was clipped proximally x2, distally x1, and transected. Gallbladder which was moderately intrahepatic was then cauterized from the gallbladder fossa using Bovie. Specimen placed in an Endo- Catch bag, a retrieved through the umbilical port. Abdominal cavity was copiously irrigated and secured hemostasis. All ports were removed under direct laparoscopic view. Wounds were closed in the following manner; umbilical wound has fascia reapproximated using interrupted 0 Vicryl suture. Skin wounds were closed in subcuticular 4-0 Vicryl sutures followed by Steri-Strips and sterile dressings. Wounds were infiltrated 0.5% Marcaine at completion. Sponge, needle, and instrument counts were reported correct. Patient tolerated the procedure well and emerged from anesthesia stable condition. EBL minimal
[2025-01-17] MEDS: fentaNYL citrate/PF 100 MCG/2 ML VIAL 50 MCG IVPUSH ×3 (10:25→10:45)
== END 2025-01-17 12:07 | disposition home or self-care (01) ==
PROVIDERS: PCP Internal Medicine; Visit Provider Surgery
PROC: 0FT44ZZ Resection of Gallbladder, Percutaneous Endoscopic Approach (ICD-10-PCS; CPT 47562; principal; 2025-01-17 08:50)
DX: K80.10 Calculus of gallbladder with chronic cholecystitis without obstruction (principal); E65 Localized adiposity; K82.8 Other specified diseases of gallbladder; Z87.19 Personal history of other diseases of the digestive system; Q44.1 Other congenital malformations of gallbladder; I10 Essential (primary) hypertension; J45.909 Unspecified asthma, uncomplicated; Z79.899 Other long term (current) drug therapy; Z98.51 Tubal ligation status; Z88.5 Allergy status to narcotic agent
CPT/HCPCS: 47563; 88304; C1726; J0131; J0690; J1100; J1885; J2003; J2250; J2405; J2704; J2795; J3010; Q9967

== ENCOUNTER → 2025-01-17 07:08 | Outpatient (BNV) | payer OTHER, SELFPAY | PROVIDERS: PCP Internal Medicine; Visit Provider Surgery | DX: K85.10 Biliary acute pancreatitis without necrosis or infection (principal) | CPT/HCPCS: 47563 ==

== ENCOUNTER 2025-01-29 13:13 | Outpatient (AMB) | payer OTHER, SELFPAY ==
--- NOTE | 2025-01-29 13:26 | A.OFFVIS_ITS ---
Vital Signs 01/29/25 13:33 Weight 270 lb BP 138/70 Blood Pressure Location Rt brachial Position Sitting Pulse 69 Intake Visit Reasons: s/p lap levi Intake Note: Patient here s/p laparoscopic cholecystectomy with cholangiogram. Reports incision healing well. Patient c/o: denies pain. No longer taking rx pain meds. 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 Status post laparoscopic cholecystectomy. She is doing well. She is tolerating a diet. He is having regular bowel habits. She has minimal incisional discomfort. She is slowly but steadily increasing her activity level. [facility] Medical History (Updated 01/15/25 @ 10:14 by Bridget Rodríguez RN) Constipation Knee pain, bilateral Back pain Asthma HTN (hypertension) Surgical History (Updated 01/29/25 @ 13:41 by Raymon Alexis MD) Previous section History of nasal surgery Hx of tubal ligation Hx of tonsillectomy Family History Mother No problems noted. Father Hypertension High cholesterol Arthritis Social History (Updated 01/15/25 @ 10:18 by Bridget Rodríguez RN) Household Members: Other Household Members Other:: daughter Housing: House Are you a primary intensive care specialist to a significant other at home: No Do you presently have visiting nurse or other home services: No Alcohol intake: current Alcohol intake frequency: holidays/special occasions only Patient Tobacco Use Status: Never used Tobacco e-Cigarette/Vaping Use: Never Used service: No Physical Exam Vital Signs: Last Vital Signs Pulse 69 01/29/25 13:33 BP 138/70 01/29/25 13:33 Eyes Other: Anicteric GI Other: Abdomen is very corpulent, soft, benign. All wounds clean dry and intact healing well Assessment & Plan Assessment & Plan (1) Status post laparoscopic cholecystectomy: Code(s): Z90.49 - Acquired absence of other specified parts of digestive tract Category: Medical Plan Patient was been given local instructions, and will otherwise follow-up p.r.n.. All questions answered. Coding Level of Care Code Global (27214) Diagnoses Status post laparoscopic cholecystectomy Z90.49
[2025-01-29 13:33] VITALS: BP 138/70; PULSE 69
== END 2025-01-29 13:42 | disposition home or self-care (01) ==
LOC: HO.HGS 13:13
PROVIDERS: PCP Internal Medicine; Visit Provider Surgery
DX: Z90.49 Acquired absence of other specified parts of digestive tract (principal)
CPT/HCPCS: 99024

== ENCOUNTER → 2025-01-29 13:13 | Outpatient (BNVA) | payer OTHER, SELFPAY | PROVIDERS: PCP Internal Medicine; Visit Provider Surgery | DX: Z09 Encounter for follow-up examination after completed treatment for conditions other than malignant neoplasm (principal); Z90.49 Acquired absence of other specified parts of digestive tract | CPT/HCPCS: 99212 ==